=== PATIENT | male | born 1950 | race Caucasian/White ===

== ENCOUNTER 2016-06-13 09:03 | Day surgery (SDC) | payer MEDICARE, OTHER ==
[2016-06-10 10:04] VITALS: BMI 28.7
[2016-06-13 09:31] VITALS: TEMP 97
[2016-06-13] MEDS ORDERED: LIDOCAINE 1% 20 ML VIAL (10MG/ML) FOR IV START INTRADERMA ONE (09:40)
[2016-06-13] MEDS: LACTATED RINGERS 1,000 ML IV SCH ×2 (09:41→10:30)
[2016-06-13 09:43] LABS: Glucose,Whole Blood 189 mg/dL (75-99)
[2016-06-13] MEDS ORDERED: LIDOCAINE 1% INJ 10MG/ML (20 ML MDV) ONE (10:30)
[2016-06-13] MEDS ORDERED: PROPOFOL 10 MG/ML 20 ML VIAL IV ONE (10:30)
--- NOTE | 2016-06-13 10:51 | P.PCN ---
Date of Procedure: 06/13/16 Procedure(s) Performed: BRIEF HISTORY: Patient is a 65-year-old pleasant white male, scheduled for an elective colonoscopy as a part of evaluation of intermittent rectal bleeding for the last few days duration. Has history of prostate cancer status post duration therapy a year ago. Procedure performed : Colonoscopy his argon plasma coagulation . PREOPERATIVE DIAGNOSIS: Rectal bleeding. IV sedation per Anesthesia. PROCEDURE: After informed consent was obtained, the patient, was brought into the endoscopy unit. IV sedation was administered by Anesthesia under continuous monitoring. Digital rectal examination was normal. Initially the Olympus CF- 160 flexible video colonoscope was then inserted in the rectum, gradually advanced into the cecum without any difficulty. Careful examination was performed as the scope was gradually being withdrawn. Ileocecal valve and the appendiceal orifice were visualized and appeared normal. Prep was excellent. Mucosa of the cecum, ascending colon, transverse colon, descending colon, sigmoid colon appeared normal. Scattered sigmoid diverticulosis seen. In the distal rectum there were multiple telangiectasia identified consistent with radiation proctitis some oozing noted. At this time argon plasma coagulation was performed and all the colonic basis with coagulated with good hemostasis. Retroflexion was performed in the rectum and no lesions were seen. The patient tolerated the procedure well. 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 He was advised to be on a high-fiber diet and avoid straining and constipation. He will be seen in the office in 2 months.
[2016-06-13 11:09] LABS: Glucose,Whole Blood 195 mg/dL (75-99)
[2016-06-13 11:11] VITALS: BP 141/81; PULSE 84; RESP 16
== END 2016-06-13 11:36 | disposition home or self-care (01) ==
LOC: ORWHC2ENDO 09:03
PROVIDERS: ATTEND Internal Medicine Gastroenterology
DX: K62.7 Radiation proctitis (principal); K57.30 Diverticulosis of large intestine without perforation or abscess without bleeding; Z87.891 Personal history of nicotine dependence; E11.9 Type 2 diabetes mellitus without complications; Z79.84 Long term (current) use of oral hypoglycemic drugs; N40.0 Benign prostatic hyperplasia without lower urinary tract symptoms; F39 Unspecified mood [affective] disorder; M10.9 Gout, unspecified; Z79.899 Other long term (current) drug therapy; Z88.0 Allergy status to penicillin; Z88.8 Allergy status to other drugs, medicaments and biological substances
CPT/HCPCS: 45382; J2001; J2704

== ENCOUNTER 2022-07-05 08:18 | Day surgery (SDC) | payer MEDICARE, OTHER ==
[2022-07-02 16:20] VITALS: BMI 23.0
[~2022-07-05 08:18] MED LIST: LACTATED RINGERS 1,000 ML IV SCH; LIDOCAINE 1% (10MG/ML) FOR IV START INTRADERMA PRN
[2022-07-05] MEDS ORDERED: LACTATED RINGERS 1,000 ML IV ONE ×2 (08:39)
[2022-07-05 08:46] VITALS: TEMP 97.8
[2022-07-05] MEDS ORDERED: PROPOFOL 10 MG/ML 20 ML VIAL IV ONE (09:32)
[2022-07-05] MEDS ORDERED: LIDOCAINE 2% INJ 20 MG/ML (2 ML VIAL) ONE (09:32)
--- NOTE | 2022-07-05 09:52 | P.PCN ---
Date of Procedure: 07/05/22 Procedure(s) Performed: BRIEF HISTORY: Patient is a 71-year-old, pleasant, white male scheduled for an upper endoscopy as a part of follow-up of esophageal varices. Last EGD was in March of this year and underwent variceal ligation. He did have an acute esophageal variceal bleeding and January 2022.. PROCEDURE PERFORMED: Esophagogastroduodenoscopy with variceal ligation. PREOPERATIVE DIAGNOSIS: Follow-up of esophageal varices. IV sedation per anesthesia. PROCEDURE: After informed consent was obtained, the patient was brought into the endoscopy unit. IV sedation was administered by Anesthesia under continuous monitoring. Initially the Olympus GIF-140 video endoscope was inserted into the mouth. Esophagus intubated without any difficulty. It was gradually advanced into the stomach and duodenum and carefully examined. The bulb and the second part of the duodenum appeared normal. The scope at this time was withdrawn to the stomach, adequately insufflated with air, and upon careful examination, mucosa of the antrum, body, cardia and the fundus had changes consistent with mild to moderate portal hypertensive gastropathy.. The scope was then withdrawn into the esophagus. The GE junction was located at 43 cm from the incisors. The esophagus appeared normal. There where a large mid esophageal varices seen and small distal esophageal varices. At this time the scope was removed and esophageal variceal ligation equipment was introduced into the scope and esophagus was intubated without any difficulty and was gradually advanced into the distal esophagus. Using suction total of 5 bands were deployed in the distal and midesophagus. The proximal cervical esophagus appeared normal. Patient tolerated the procedure well. IMPRESSION: 1. Large mid and distal esophageal varices status post variceal ligation as described above. 2. Mild to moderate portal hypertensive gastropathy. RECOMMENDATIONS: The findings of this examination were discussed with the patient as well as his family. He was advised to continue with his current medications. Will plan a repeat upper endoscopy with variceal ligation in 6 months.
[2022-07-05 10:11] VITALS: BP 100/56; PULSE 59; RESP 18
== END 2022-07-05 10:27 | disposition home or self-care (01) ==
LOC: ORWHC2ENDO 08:18
PROVIDERS: ATTEND Internal Medicine Gastroenterology
DX: I85.00 Esophageal varices without bleeding (principal); K31.89 Other diseases of stomach and duodenum; K76.6 Portal hypertension; I10 Essential (primary) hypertension; E78.5 Hyperlipidemia, unspecified; E11.9 Type 2 diabetes mellitus without complications; K74.60 Unspecified cirrhosis of liver; Z88.5 Allergy status to narcotic agent; Z88.0 Allergy status to penicillin; Z79.899 Other long term (current) drug therapy
CPT/HCPCS: 43244; J2704; J2001

== ENCOUNTER 2023-02-21 09:31 | Day surgery (SDC) | payer MEDICARE, OTHER ==
[~2023-02-21 09:31] MED LIST changes: -LIDOCAINE 1% (10MG/ML) FOR IV START INTRADERMA PRN
[2023-02-21 10:21] LABS: Glucose,Whole Blood 156 mg/dL (70-110)
[2023-02-21] MEDS ORDERED: LIDOCAINE 1% INJ 10MG/ML (20 ML MDV) ONE (10:31)
[2023-02-21] MEDS ORDERED: ETOMIDATE 2 MG/ML 10 ML VIAL ONE (10:31)
[2023-02-21 10:44] VITALS: RESP 16; TEMP 96.9
--- NOTE | 2023-02-21 10:47 | P.PCN ---
Date of Procedure: 02/21/23 Procedure(s) Performed: BRIEF HISTORY: Patient is a 72-year-old, pleasant, white male scheduled for an upper endoscopy as a part of evaluation of liver cirrhosis and follow-up esophageal varices. History of esophageal variceal bleed in January 2022. Last EGD was done in June 2022 and was noted to have large esophageal varices for which she underwent variceal ligation.. PROCEDURE PERFORMED: Esophagogastroduodenoscopy. PREOPERATIVE DIAGNOSIS: Follow-up esophageal varices. IV sedation per anesthesia. PROCEDURE: After informed consent was obtained, the patient was brought into the endoscopy unit. IV sedation was administered by Anesthesia under continuous monitoring. Initially the Olympus GIF-140 video endoscope was inserted into the mouth. Esophagus intubated without any difficulty. It was gradually advanced into the stomach and duodenum and carefully examined. The bulb and the second part of the duodenum appeared normal. The scope at this time was withdrawn to the stomach, adequately insufflated with air, and upon careful examination, mucosa of the antrum, body had changes consistent with mild portal hypertensive gastropathy., cardia and the fundus appeared normal. No gastric varices seen. The scope was then withdrawn into the esophagus. Small hiatal hernia noted. The GE junction was located at 39 cm from the incisors. The esophagus appeared normal. There were very small mid esophageal varices identified. No variceal ligation was performed. There were no erosions or ulcerations seen and the patient tolerated the procedure well. IMPRESSION: 1. Very small with esophageal varices. 2. Mild portal hypertensive gastropathy 3 No evidence of gastric varices.. 4. Small hiatal hernia RECOMMENDATIONS: The findings of this examination were discussed with the patientas well as his family. He was advised to have a repeat upper endoscopy in 6 months. In the meantime he will continue metoprolol 10 mg 3 times daily. Follow-up in office in 2 months.
[2023-02-21 11:32] LABS: ALT 13 U/L (4-49); AST 25 U/L (17-59); African American GFR (CKD) 39 (>60 ml/min/1.73 sqM); Albumin 2.7 g/dL (3.5-5.0); Alkaline Phosphatase 315 U/L (38-126); Anion Gap 11 mmol/L; Blood Urea Nitrogen 34 mg/dL (9-20); Calcium 8.3 mg/dL (8.4-10.2); Carbon Dioxide 24 mmol/L (22-30); Chloride 102 mmol/L (98-107); Glucose 158 mg/dL (74-99); Non-African American GFR(CKD) 34 (>60 ml/min/1.73 sqM); Potassium 4.1 mmol/L (3.5-5.1); Sodium 137 mmol/L (137-145); Total Bilirubin 1.1 mg/dL (0.2-1.3); Total Protein 6.1 g/dL (6.3-8.2)
[2023-02-21 11:34] VITALS: BP 136/68; PULSE 80
== END 2023-02-21 11:45 | disposition home or self-care (01) ==
LOC: ORWHC2ENDO 09:31
PROVIDERS: ATTEND Internal Medicine Gastroenterology
DX: K31.89 Other diseases of stomach and duodenum (principal); K44.9 Diaphragmatic hernia without obstruction or gangrene; K76.6 Portal hypertension; I10 Essential (primary) hypertension; I85.01 Esophageal varices with bleeding; E11.9 Type 2 diabetes mellitus without complications; K21.9 Gastro-esophageal reflux disease without esophagitis; Z96.642 Presence of left artificial hip joint; Z79.899 Other long term (current) drug therapy; Z88.2 Allergy status to sulfonamides; Z88.3 Allergy status to other anti-infective agents; Z98.890 Other specified postprocedural states
CPT/HCPCS: 80053; 43235; J2001

== ENCOUNTER 2023-02-27 12:16 | Day surgery (SDC) | payer MEDICARE, OTHER ==
[2023-02-27 13:32] LABS: Mean Platelet Volume 8.1; Platelet Count 120 k/uL (150-450)
[2023-02-27 13:39] LABS: INR 1.1 (<1.2); Prothrombin Time 12.1 sec (10.0-12.5)
[2023-02-27 13:43] LABS: African American GFR (CKD) 44 (>60 ml/min/1.73 sqM); Glucose 243 mg/dL (74-99); Non-African American GFR(CKD) 38 (>60 ml/min/1.73 sqM)
[2023-02-27 13:49] VITALS: RESP 16
[2023-02-27] MEDS: ALBUMIN HUMAN 25% 50 ML in EMPTY BAG 1 BAG IVPB SCH ×4 (13:52→14:45)
--- NOTE | 2023-02-27 16:05 | US ---
EXAMINATION TYPE: US paracentesis abd w/image DATE OF EXAM: 02/27/2023 2:38 PM CLINICAL INDICATION:Male, 72 years old with history of R18.8; COMPARISON: 02/26/2010 ATTENDING: Dr. Corky Alvarado PROCEDURE: Informed consent was obtained. The risks of the procedure were extensively explained incl uding risk of damage to surrounding bowel with perforation and need for additional procedures. Proced ure was performed in the ultrasound procedure suite. Ultrasound imaging of the abdomen demonstrate as citic fluid. An appropriate access site was localized to the right lower abdomen. Timeout was taken p er protocol. The skin was prepped and draped in the usual sterile fashion and then locally anesthetiz ed with 1% lidocaine. The peritoneal cavity was then accessed via a 5-Malay one-step needle/cathete r. Approximately 41170 cc of clear straw-colored fluid was obtained. Postprocedural imaging of the abdomen demonstrate a minimal amount of abdominal fluid. Patient tolerated procedure well without immediate complication. Hemostasis at the procedural site w as obtained with a sterile bandage placed. The patient was monitored in the holding area following th e procedure and was subsequently discharged in stable condition. IMPRESSION: Ultrasound guided paracentesis, with approximately 34650 cc of clear straw-colored fluid drained. No immediate complications were evident.
[2023-02-27 16:07] VITALS: BP 109/63; PULSE 75
== END 2023-02-27 15:25 | disposition home or self-care (01) ==
LOC: RADPROMAIN 12:16
PROVIDERS: ATTEND Internal Medicine Gastroenterology
DX: R18.8 Other ascites (principal)
CPT/HCPCS: 82565; 82947; 85049; 85610; 36415; 49083; P9047

== ENCOUNTER 2023-04-01 19:07 | Inpatient (IN) | payer MEDICARE, OTHER ==
--- NOTE | 2023-04-01 19:26 | ED ---
General Adult HPI - General Chief complaint: Weakness Stated complaint: AMS Time Seen by Provider: 04/01/23 19:08 Source: patient, EMS, RN notes reviewed Mode of arrival: EMS Limitations: no limitations - History of Present Illness Initial comments: Patient is a pleasant 72-year-old male presenting to the emergency department with concerns with general weakness. Patient is somewhat a poor historian. Patient states he just does not feel well. Patient does have history of cirrhosis. Patient normally has paracentesis done around every 3 weeks. Pat ient does have some mild leg swelling. Patient mostly feels fatigued. There was some question of some confusion however patient does not feel confused. - Related Data Home Medications Medication Instructions Recorded Confirmed Mv-Min/Folic/K1/Lycopen/Lutein 1 each PO 1200 06/10/16 03/26/23 [Centrum Silver Men Tablet] Propranolol [Inderal] 10 mg PO TID 06/10/16 03/26/23 Midodrine HCl 5 mg PO 0800,1200 04/08/22 03/26/23 Pantoprazole [Protonix] 40 mg PO DAILY 04/08/22 03/26/23 Spironolactone 25 mg PO 0900 04/08/22 03/26/23 Tamsulosin [Flomax] 0.4 mg PO DAILY 04/08/22 03/26/23 Ferrous Sulfate [Iron] 325 mg PO BID 07/02/22 03/26/23 Furosemide [Lasix] 40 mg PO QAM 07/02/22 03/26/23 Slow-Mag (Unknown Dose) 1 tab PO 1200 07/02/22 03/26/23 traMADol HCL 50 mg PO HS PRN 07/02/22 03/26/23 Insulin Detemir [Levemir Flexpen] 10 units SQ DIRECTED 02/14/23 03/26/23 Allergies Allergy/AdvReac Type Severity Reaction Status Date / Time azithromycin [From Zithromax] Allergy Diarrhea Verified 04/01/23 19:22 enzalutamide [From Xtandi] Allergy Rash/Hives Verified 04/01/23 19:22 niacin Allergy Itching, Verified 04/01/23 19:22 red skin Penicillins Allergy Itching Verified 04/01/23 19:22 Sulfa (Sulfonamide Allergy Unknown Verified 04/01/23 19:22 Antibiotics) Review of Systems ROS Statement: Those systems with pertinent positive or pertinent negative responses have been documented in the HPI. ROS Other: All systems not noted in ROS Statement are negative. Constitutional: Denies: fever Eyes: Denies: eye pain ENT: Denies: as per HPI Respiratory: Denies: cough, dyspnea Cardiovascular: Denies: chest pain Endocrine: Reports: as per HPI, fatigue Gastrointestinal: Denies: abdominal pain Musculoskeletal: Denies: back pain Past Medical History Past Medical History: Cancer, Diabetes Mellitus, Liver Disease, Osteoarthritis (OA), Prostate Disorder, Skin Disorder Additional Past Medical History / Comment(s): Hx blood in stool, cirrhosis, hx prostate cancer 2016, hx decubitis ulcer left buttock, now healed. paracentisis every 3 weeks approx, esophageal varacies History of Any Multi-Drug Resistant Organisms: None Reported Past Surgical History: Joint Replacement Additional Past Surgical History / Comment(s): Left hip replacement, left carotid endarterectomy, EGD, colonoscopy. esophageal varacies banding Past Anesthesia/Blood Transfusion Reactions: Family History of Problems w/ Anesthesia Additional Past Anesthesia/Blood Transfusion Reaction / Comment(s): Mother - "dementia from anesthesia" Past Psychological History: No Psychological Hx Reported Smoking Status: Former smoker Past Alcohol Use History: None Reported Past Drug Use History: None Reported - Past Family History Mother Family Medical History: No Reported History General Exam Limitations: no limitations General appearance: alert, in no apparent distress Head exam: Present: normocephalic Eye exam: Present: normal appearance, PERRL, EOMI ENT exam: Present: mucous membranes dry Neck exam: Present: normal inspection Respiratory exam: Present: normal lung sounds bilaterally Cardiovascular Exam: Present: regular rate, normal rhythm GI/Abdominal exam: Present: distended, normal bowel sounds. Absent: tenderness, pulsatile mass Extremities exam: Present: pedal edema. Absent: calf tenderness Neurological exam: Present: alert Psychiatric exam: Present: normal affect, normal mood Skin exam: Present: normal color Course Vital Signs 04/01/23 19:09 Temperature 97.3 F L Pulse Rate 64 Respiratory 18 Rate Blood Pressure 97/57 O2 Sat by Pulse 99 Oximetry EKG Findings - EKG Results: EKG: interpreted by ERMD, sinus rhythm, normal axis, normal QRS, normal ST/T Medical Decision Making - Medical Decision Making Was pt. sent in by a medical professional or institution (, PA, SHIPPING SERVICES SALES REPRESENTATIVE, urgent care, hospital, or long term...) When possible be specific @ -No Did you speak to anyone other than the patient for history (EMS, parent, family, police, friend...)? What history was obtained from this source @ -Family arrives and helps provide further history including history of confusion and patient no longer being able to read Did you review nursing and triage notes (agree or disagree)? Why? @ -I reviewed and agree with nursing and triage notes Were old charts reviewed (outside hosp., previous admission, EMS record, old EKG, old radiological studies, urgent care reports/EKG's, long term records)? Report findings @ -Previous labs reviewed Differential Diagnosis (chest pain, altered mental status, abdominal pain women, abdominal pain men, vaginal bleeding, weakness, fever, dyspnea, syncope, headache, dizziness, GI bleed, back pain, seizure, CVA, palpatations, mental health, musculoskeletal)? @ -Differential Altered Mental Status: Hypoglycemia, DKA, hypercapnia, ETOH, overdose, CO poisoning, trauma, myxedema coma, HTN encephalopathy, infection, encephalitis, psychosis, intercranial hemorrhage, hepatic encephalopathy, meningitis, CVA, this is not meant to be an all-inclusive list EKG interpreted by me (3pts min.). @ -As above X-rays interpreted by me (1pt min.). @ -Chest x-ray shows old rib fractures CT interpreted by me (1pt min.). @ -CT brain reveals no acute abnormality. U/S interpreted by me (1pt. min.). @ -None done What testing was considered but not performed or refused? (CT, X-rays, U/S, labs)? Why? @ -None What meds were considered but not given or refused? Why? @ -None Did you discuss the management of the patient with other professionals (professionals i.e. , PA, SHIPPING SERVICES SALES REPRESENTATIVE, lab, RT, psych nurse, social insurance administrator, plisse machine operator, teacher, evp and chief operating officer, field nurse case manager)? Give summary @ -Case was discussed with practitioner Sada, covering with Dr. Meyer, who will admit covering Dr. Mays. Was smoking cessation discussed for >3mins.? @ -No Was critical care preformed (if so, how long)? @ -No Were there social determinants of health that impacted care today? How? (Homelessness, low income, unemployed, alcoholism, drug addiction, transportation, low edu. Level, literacy, decrease access to med. care, [facility], rehab)? @ -No Was there de-escalation of care discussed even if they declined (Discuss DNR or withdrawal of care, Hospice)? DNR status @ -No What co-morbidities impacted this encounter? (DM, HTN, Smoking, COPD, CAD, C ancer, CVA, ARF, Chemo, Hep., AIDS, mental health diagnosis, sleep apnea, morbid obesity)? @ -Underlying cirrhosis e Was patient admitted / discharged? Hospital course, mention meds given and route, prescriptions, significant lab abnormalities, going to OR and other pertinent info. @ -Patient reevaluated. Patient resting comfortably in bed. Patient and family updated on results and plan. Patient will be admitted with lactulose treatment. Neurology will be consulted secondary to patient having known prostate cancer and being on treatment for it at this time. Undiagnosed new problem with uncertain prognosis? @ -No Drug Therapy requiring intensive monitoring for toxicity (Heparin, Nitro, Insulin, Cardizem)? @ -No Were any procedures done? @ -No Diagnosis/symptom? @ -Hepatic encephalopathy, dehydration Acute, or Chronic, or Acute on Chronic? @ -Acute, acute Uncomplicated (without systemic symptoms) or Complicated (systemic symptoms)? @ -Default Side effects of treatment? @ -No Exacerbation, Progression, or Severe Exacerbation? @ -No Poses a threat to life or bodily function? How? (Chest pain, [place], [place], pneumonia, PE, COPD, DKA, ARF, appy, cholecystitis, CVA, Diverticulitis, Homicidal, Suicidal, threat to staff... and all critical care pts) @ -No - Lab Data Result diagrams: 04/01/23 19:27 04/01/23 19:27 Lab Results 04/01/23 04/01/23 04/01/23 Range/Units 19:26 19:27 19:27 WBC 8.6 (3.8-10.6) k/uL RBC 2.50 L (4.30-5.90) m/uL Hgb 8.2 L (13.0-17.5) gm/dL Hct 25.3 L (39.0-53.0) % MCV 101.4 H (80.0-100.0) fL MCH 32.8 (25.0-35.0) pg MCHC 32.4 (31.0-37.0) g/dL RDW 19.5 H (11.5-15.5) % Plt Count 87 L (150-450) k/uL MPV 9.9 Neutrophils % 89 % Lymphocytes % 5 % Monocytes % 4 % Eosinophils % 1 % Basophils % 0 % Neutrophils # 7.6 (1.3-7.7) k/uL Lymphocytes # 0.4 L (1.0-4.8) k/uL Monocytes # 0.4 (0-1.0) k/uL Eosinophils # 0.1 (0-0.7) k/uL Basophils # 0.0 (0-0.2) k/uL Manual Slide Review Performed Polychromasia Present Hypochromasia Moderate Hypochromasia (manual) Present Anisocytosis Slight Anisocytosis (manual) Present Macrocytosis Moderate PT 15.7 H (10.0-12.5) sec INR 1.5 H (<1.2) APTT 28.9 (22.0-30.0) sec Sodium (137-145) mmol/L Potassium (3.5-5.1) mmol/L Chloride (98-107) mmol/L Carbon Dioxide (22-30) mmol/L Anion Gap mmol/L BUN (9-20) mg/dL Creatinine (0.66-1.25) mg/dL Est GFR (CKD-EPI)AfAm (>60 ml/min/1.73 sqM) Est GFR (CKD-EPI)NonAf (>60 ml/min/1.73 sqM) Glucose (74-99) mg/dL POC Glucose (mg/dL) 173 H (70-110) mg/dL POC Glu Java Web Application Developer ID Gregg Olsen Plasma Lactic Acid Bryan (0.7-2.0) mmol/L Calcium (8.4-10.2) mg/dL Magnesium (1.6-2.3) mg/dL Total Bilirubin (0.2-1.3) mg/dL AST (17-59) U/L ALT (4-49) U/L Alkaline Phosphatase (38-126) U/L Ammonia (<30) umol/L Troponin I (0.000-0.034) ng/mL Total Protein (6.3-8.2) g/dL Albumin (3.5-5.0) g/dL Urine Color Urine Appearance (Clear) Urine pH (5.0-8.0) Ur Specific [place] (1.001-1.035) Urine Protein (Negative) Urine Glucose (UA) (Negative) Urine Ketones (Negative) Urine Blood (Negative) Urine Nitrite (Negative) Urine Bilirubin (Negative) Urine Urobilinogen (<2.0) mg/dL Ur Leukocyte Esterase (Negative) 04/01/23 04/01/23 04/01/23 Range/Units 19:27 19:27 19:27 WBC (3.8-10.6) k/uL RBC (4.30-5.90) m/uL Hgb (13.0-17.5) gm/dL Hct (39.0-53.0) % MCV (80.0-100.0) fL MCH (25.0-35.0) pg MCHC (31.0-37.0) g/dL RDW (11.5-15.5) % Plt Count (150-450) k/uL MPV Neutrophils % % Lymphocytes % % Monocytes % % Eosinophils % % Basophils % % Neutrophils # (1.3-7.7) k/uL Lymphocytes # (1.0-4.8) k/uL Monocytes # (0-1.0) k/uL Eosinophils # (0-0.7) k/uL Basophils # (0-0.2) k/uL Manual Slide Review Polychromasia Hypochromasia Hypochromasia (manual) Anisocytosis Anisocytosis (manual) Macrocytosis PT (10.0-12.5) sec INR (<1.2) APTT (22.0-30.0) sec Sodium 138 (137-145) mmol/L Potassium 5.5 H (3.5-5.1) mmol/L Chloride 112 H (98-107) mmol/L Carbon Dioxide 12 L (22-30) mmol/L Anion Gap 14 mmol/L BUN 79 H (9-20) mg/dL Creatinine 2.34 H (0.66-1.25) mg/dL Est GFR (CKD-EPI)AfAm 31 (>60 ml/min/1.73 sqM) Est GFR (CKD-EPI)NonAf 27 (>60 ml/min/1.73 sqM) Glucose 153 H (74-99) mg/dL POC Glucose (mg/dL) (70-110) mg/dL POC Glu Java Web Application Developer ID Plasma Lactic Acid Bryan 3.8 H* (0.7-2.0) mmol/L Calcium 6.8 L (8.4-10.2) mg/dL Magnesium 2.2 (1.6-2.3) mg/dL Total Bilirubin 2.2 H (0.2-1.3) mg/dL AST 38 (17-59) U/L ALT 23 (4-49) U/L Alkaline Phosphatase 554 H (38-126) U/L Ammonia 167 H (<30) umol/L Troponin I (0.000-0.034) ng/mL Total Protein 6.3 (6.3-8.2) g/dL Albumin 2.8 L (3.5-5.0) g/dL Urine Color Colorless Urine Appearance Clear (Clear) Urine pH 5.0 (5.0-8.0) Ur Specific [place] 1.009 (1.001-1.035) Urine Protein Negative (Negative) Urine Glucose (UA) Negative (Negative) Urine Ketones Negative (Negative) Urine Blood Negative (Negative) Urine Nitrite Negative (Negative) Urine Bilirubin Negative (Negative) Urine Urobilinogen <2.0 (<2.0) mg/dL Ur Leukocyte Esterase Negative (Negative) 04/01/23 Range/Units 19:27 WBC (3.8-10.6) k/uL RBC (4.30-5.90) m/uL Hgb (13.0-17.5) gm/dL Hct (39.0-53.0) % MCV (80.0-100.0) fL MCH (25.0-35.0) pg MCHC (31.0-37.0) g/dL RDW (11.5-15.5) % Plt Count (150-450) k/uL MPV Neutrophils % % Lymphocytes % % Monocytes % % Eosinophils % % Basophils % % Neutrophils # (1.3-7.7) k/uL Lymphocytes # (1.0-4.8) k/uL Monocytes # (0-1.0) k/uL Eosinophils # (0-0.7) k/uL Basophils # (0-0.2) k/uL Manual Slide Review Polychromasia Hypochromasia Hypochromasia (manual) Anisocytosis Anisocytosis (manual) Macrocytosis PT (10.0-12.5) sec INR (<1.2) APTT (22.0-30.0) sec Sodium (137-145) mmol/L Potassium (3.5-5.1) mmol/L Chloride (98-107) mmol/L Carbon Dioxide (22-30) mmol/L Anion Gap mmol/L BUN (9-20) mg/dL Creatinine (0.66-1.25) mg/dL Est GFR (CKD-EPI)AfAm (>60 ml/min/1.73 sqM) Est GFR (CKD-EPI)NonAf (>60 ml/min/1.73 sqM) Glucose (74-99) mg/dL POC Glucose (mg/dL) (70-110) mg/dL POC Glu Java Web Application Developer ID Plasma Lactic Acid Bryan (0.7-2.0) mmol/L Calcium (8.4-10.2) mg/dL Magnesium (1.6-2.3) mg/dL Total Bilirubin (0.2-1.3) mg/dL AST (17-59) U/L ALT (4-49) U/L Alkaline Phosphatase (38-126) U/L Ammonia (<30) umol/L Troponin I <0.012 (0.000-0.034) ng/mL Total Protein (6.3-8.2) g/dL Albumin (3.5-5.0) g/dL Urine Color Urine Appearance (Clear) Urine pH (5.0-8.0) Ur Specific [place] (1.001-1.035) Urine Protein (Negative) Urine Glucose (UA) (Negative) Urine Ketones (Negative) Urine Blood (Negative) Urine Nitrite (Negative) Urine Bilirubin (Negative) Urine Urobilinogen (<2.0) mg/dL Ur Leukocyte Esterase (Negative) Disposition Clinical Impression: Dehydration, Hepatic encephalopathy Disposition: ADMITTED IP TO THIS [facility] Is patient prescribed a controlled substance at d/c from ED?: No Referrals: None,Stated [Primary Care Provider] - 1-2 days Time of Disposition: 20:39
[2023-04-01 19:28] LABS: Glucose,Whole Blood 173 mg/dL (70-110)
[2023-04-01 19:55] LABS: Anisocytosis Slight; Appearance,Urine Clear (Clear); Basophils % (A) 0 %; Bilirubin,Urine Negative (Negative); Blood,Urine Negative (Negative); Color,Urine Colorless; Eosinophils # (A) 0.1 k/uL (0-0.7); Eosinophils % (A) 1 %; Glucose,Urine (UA) Negative (Negative); HCT 25.3 % (39.0-53.0); HGB 8.2 gm/dL (13.0-17.5); Hypochromasia Moderate; Ketones,Urine Negative (Negative); Leukocyte Esterase,Urine Negative (Negative); Lymphocytes # (A) 0.4 k/uL (1.0-4.8); Lymphocytes % (A) 5 %; MCH 32.8 pg (25.0-35.0); MCHC 32.4 g/dL (31.0-37.0); MCV 101.4 fL (80.0-100.0); Macrocytosis Moderate; Mean Platelet Volume 9.9; Monocytes # (A) 0.4 k/uL (0-1.0); Monocytes % (A) 4 %; Neutrophils # (A) 7.6 k/uL (1.3-7.7); Nitrite,Urine Negative (Negative); Protein,Urine Negative (Negative); RDW 19.5 % (11.5-15.5); Specific Gravity,Urine 1.009 (1.001-1.035); Urobilinogen,Urine <2.0 mg/dL (<2.0); WBC 8.6 k/uL (3.8-10.6)
[2023-04-01 19:57] LABS: INR 1.5 (<1.2); Partial Thromboplastin Time 28.9 sec (22.0-30.0); Prothrombin Time 15.7 sec (10.0-12.5)
[2023-04-01 20:05] LABS: ALT 23 U/L (4-49); AST 38 U/L (17-59); African American GFR (CKD) 31 (>60 ml/min/1.73 sqM); Albumin 2.8 g/dL (3.5-5.0); Alkaline Phosphatase 554 U/L (38-126); Anion Gap 14 mmol/L; Blood Urea Nitrogen 79 mg/dL (9-20); Calcium 6.8 mg/dL (8.4-10.2); Carbon Dioxide 12 mmol/L (22-30); Chloride 112 mmol/L (98-107); Glucose 153 mg/dL (74-99); Magnesium 2.2 mg/dL (1.6-2.3); Non-African American GFR(CKD) 27 (>60 ml/min/1.73 sqM); Potassium 5.5 mmol/L (3.5-5.1); Sodium 138 mmol/L (137-145); Total Bilirubin 2.2 mg/dL (0.2-1.3); Total Protein 6.3 g/dL (6.3-8.2)
[2023-04-01 20:07] LABS: Lactic Acid, Venous 3.8 mmol/L (0.7-2.0)
[2023-04-01 20:10] LABS: Neutrophils % (A) 89 %
--- NOTE | 2023-04-01 20:13 | CT ---
EXAMINATION TYPE: CT brain wo con CT DLP: 1242.4 mGycm, Automated exposure control for dose reduction was used. DATE OF EXAM: 04/01/2023 7:55 PM COMPARISON: None. CLINICAL INDICATION:Male, 72 years old with history of , Weakness. TECHNIQUE: Brain: Axial CT images of the brain were obtained with coronal and sagittal reformats created and rev iewed. Contrast used: None. Oral contrast used: None. FINDINGS: Brain: Extra-axial spaces: No abnormal extra-axial fluid collections. Ventricular system: Within normal limits Cerebral parenchyma: No acute intraparenchymal hemorrhage or mass effect. The donaldson-white junction is well differentiated. Scattered hypoattenuating areas are seen within the white matter. Cerebellum: Unremarkable. Mass effect: No evidence of midline shift. Intracranial vasculature: Atherosclerotic calcifications of the intracranial vessels. Soft tissues: Normal. Calvarium/osseous structures: No depressed skull fracture. Paranasal sinuses and mastoid air cells: Mild scattered paranasal sinus disease. Visualized orbits: Orbital contents are intact. IMPRESSION: No acute intracranial process.
[2023-04-01 20:26] LABS: Platelet Count 87 k/uL (150-450)
[2023-04-01 20:27] LABS: Anisocytosis (M) Present; Hypochromasia (M) Present; Polychromasia Present
[2023-04-01] MEDS ORDERED: NALOXONE 0.4 MG/ML 1 ML VIAL IV PRN (20:32)
--- NOTE | 2023-04-01 20:47 | XR ---
EXAMINATION TYPE: XR chest 2V DATE OF EXAM: 04/01/2023 8:37 PM CLINICAL INDICATION:Male, 72 years old with history of Weakness; [facility] COMPARISON: Chest radiographs from TECHNIQUE: XR chest 2V Frontal and lateral views of the chest. FINDINGS: Lungs/Pleura: There is no evidence of pleural effusion, focal consolidation, or pneumothorax. Pulmonary vascularity: Unremarkable. Heart/mediastinum: Cardiomediastinal silhouette is unremarkable. Musculoskeletal: No acute osseous pathology. Remote healing right-sided rib fractures. IMPRESSION: 1. No acute cardiopulmonary disease/process. 2. Remote right-sided healing rib fractures.
[2023-04-01] MEDS: SODIUM CHLORIDE 0.9% 1,000 ML IV SCH (20:50)
[2023-04-01] MEDS: PANTOPRAZOLE 40 MG/10 ML VIAL IV SCH (20:55)
[2023-04-01] MEDS: LACTULOSE 20 GM/30 ML CUP PO SCH (23:49)
[2023-04-02 04:27] LABS: Anisocytosis Slight; Basophils % (A) 0 %; Eosinophils % (A) 1 %; HCT 24.9 % (39.0-53.0); HGB 7.9 gm/dL (13.0-17.5); Hypochromasia Marked; Lymphocytes # (A) 0.3 k/uL (1.0-4.8); Lymphocytes % (A) 5 %; MCH 32.8 pg (25.0-35.0); MCHC 31.6 g/dL (31.0-37.0); MCV 103.9 fL (80.0-100.0); Macrocytosis Marked; Mean Platelet Volume 9.6; Monocytes # (A) 0.3 k/uL (0-1.0); Monocytes % (A) 5 %; Neutrophils # (A) 5.9 k/uL (1.3-7.7); Neutrophils % (A) 89 %; RDW 19.3 % (11.5-15.5); WBC 6.7 k/uL (3.8-10.6)
[2023-04-02 04:28] LABS: Platelet Count 71 k/uL (150-450)
[2023-04-02 04:44] LABS: ALT 21 U/L (4-49); AST 42 U/L (17-59); African American GFR (CKD) 32 (>60 ml/min/1.73 sqM); Albumin 2.6 g/dL (3.5-5.0); Alkaline Phosphatase 458 U/L (38-126); Anion Gap 10 mmol/L; Blood Urea Nitrogen 80 mg/dL (9-20); Calcium 6.5 mg/dL (8.4-10.2); Carbon Dioxide 15 mmol/L (22-30); Chloride 114 mmol/L (98-107); Glucose 141 mg/dL (74-99); Magnesium 2.2 mg/dL (1.6-2.3); Non-African American GFR(CKD) 28 (>60 ml/min/1.73 sqM); Potassium 5.4 mmol/L (3.5-5.1); Sodium 139 mmol/L (137-145); Total Bilirubin 2.1 mg/dL (0.2-1.3); Total Protein 5.9 g/dL (6.3-8.2)
--- NOTE | 2023-04-02 08:51 | P.GSCN ---
History of Present Illness Consult date: 04/02/23 Reason for Consult: Prostate cancer Requesting physician: Yarely Meyer History of present illness: The patient is a 72-year-old white male well-known to me. He was diagnosed with prostate cancer in August 2015 and treated with radiation therapy. He also received androgen deprivation therapy for 6 months. In 2021, his PSA level had risen to 5.360, and bone scan suggested the presence of metastases. He was treated with androgen deprivation therapy and Xtandi. However, the Xtandi caused a rash and was discontinued. He was evaluated for hematuria in early 2022, showing penile urethral strictures but no other abnormalities. His PSA level in March 2022 was 0.10. However, the PSA level sedrick to 12.70 in October 2022 and 90.50 in January 2023. He received radiation therapy to the spine in the fall 2022, and was recently started on Erleada and Xgeva. He is now admitted admitted with generalized weakness. Review of Systems - Constitutional Reports weakness, Reports weight loss Past Medical History Past Medical History: Cancer, Diabetes Mellitus, Liver Disease, Osteoarthritis (OA), Prostate Disorder, Skin Disorder Additional Past Medical History / Comment(s): Hx blood in stool, cirrhosis, hx prostate cancer 2015, hx decubitis ulcer left buttock, now healed. paracentisis every 3 weeks approx, esophageal varacies History of Any Multi-Drug Resistant Organisms: None Reported Past Surgical History: Joint Replacement Additional Past Surgical History / Comment(s): Left hip replacement, left carotid endarterectomy, EGD, colonoscopy. esophageal varacies banding Past Anesthesia/Blood Transfusion Reactions: Family History of Problems w/ Anesthesia Additional Past Anesthesia/Blood Transfusion Reaction / Comm: Mother -"dementia from anesthesia" Past Psychological History: No Psychological Hx Reported Smoking Status: Unknown if ever smoked Past Alcohol Use History: None Reported Additional Past Alcohol Use History / Comment(s): Quit smoking 05/1999, smoked since age 15. Past Drug Use History: None Reported - Past Family History Mother Family Medical History: No Reported History Medications and Allergies Home Medications Medication Instructions Recorded Confirmed Type Mv-Min/Folic/K1/Lycopen/Lutein 1 tab PO DAILY@1200 06/10/16 04/01/23 History [Centrum Silver Men Tablet] Midodrine HCl 5 mg PO BID 04/08/22 04/01/23 History Pantoprazole [Protonix] 40 mg PO DAILY 04/08/22 04/01/23 History Spironolactone 25 mg PO DAILY 04/08/22 04/01/23 History Tamsulosin [Flomax] 0.4 mg PO PC-SUPPER 04/08/22 04/01/23 History Ferrous Sulfate [Iron] 325 mg PO DAILY 07/02/22 04/01/23 History Slow-Mag (Unknown Dose) 1 tab PO DAILY@1200 07/02/22 04/01/23 History Calcium 600mg W/Vitamin D3 1 tab PO BID 04/01/23 04/01/23 History Furosemide [Lasix] 40 mg PO DAILY 04/01/23 04/01/23 History Loperamide [Imodium] 2 mg PO BID 04/01/23 04/01/23 History Megestrol Acetate 20 mg PO BID 04/01/23 04/01/23 History Propranolol [Inderal] 10 mg PO TID 04/01/23 04/01/23 History glipiZIDE [Glucotrol] 5 mg PO BID 04/01/23 04/01/23 History metFORMIN HCL 1,000 mg PO BID 04/01/23 04/01/23 History predniSONE 100 mg PO DAILY 04/01/23 04/01/23 History Allergies Allergy/AdvReac Type Severity Reaction Status Date / Time azithromycin [From Zithromax] Allergy Diarrhea Verified 04/01/23 21:23 enzalutamide [From Xtandi] Allergy Rash/Hives Verified 04/01/23 21:23 niacin Allergy Itching, Verified 04/01/23 21:23 red skin Penicillins Allergy Itching Verified 04/01/23 21:23 Sulfa (Sulfonamide Allergy Unknown Verified 04/01/23 21:23 Antibiotics) Surgical - Exam Vital Signs Temp Pulse Resp BP Pulse Ox 97.3 F L 64 18 97/57 99 04/01/23 19:09 04/01/23 19:09 04/01/23 19:04/01/23 19:04/01/23 19:09 - General well developed, well nourished, no distress - Respiratory normal respiratory effort - Abdomen Abdomen: soft, non tender, no guarding, no rigid, no rebound, distended - Genitourinary normal penis with no external lesions, testicles non-tender - Psychiatric oriented to time, oriented to person, oriented to place, speech is normal, memory intact Results - Labs 04/02/23 03:59 04/02/23 03:59 Abnormal Lab Results - Last 24 Hours (Table) 04/01/23 04/01/23 04/01/23 Range/Units 19:26 19:27 19:27 RBC 2.50 L (4.30-5.90) m/uL Hgb 8.2 L (13.0-17.5) gm/dL Hct 25.3 L (39.0-53.0) % MCV 101.4 H (80.0-100.0) fL RDW 19.5 H (11.5-15.5) % Plt Count 87 L (150-450) k/uL Lymphocytes # 0.4 L (1.0-4.8) k/uL Macrocytosis PT 15.7 H (10.0-12.5) sec INR 1.5 H (<1.2) Potassium (3.5-5.1) mmol/L Chloride (98-107) mmol/L Carbon Dioxide (22-30) mmol/L BUN (9-20) mg/dL Creatinine (0.66-1.25) mg/dL Glucose (74-99) mg/dL POC Glucose (mg/dL) 173 H (70-110) mg/dL Plasma Lactic Acid Bryan (0.7-2.0) mmol/L Calcium (8.4-10.2) mg/dL Total Bilirubin (0.2-1.3) mg/dL Alkaline Phosphatase (38-126) U/L Ammonia (<30) umol/L Total Protein (6.3-8.2) g/dL Albumin (3.5-5.0) g/dL 04/01/23 04/01/23 04/01/23 Range/Units 19:27 19:27 22:19 RBC (4.30-5.90) m/uL Hgb (13.0-17.5) gm/dL Hct (39.0-53.0) % MCV (80.0-100.0) fL RDW (11.5-15.5) % Plt Count (150-450) k/uL Lymphocytes # (1.0-4.8) k/uL Macrocytosis PT (10.0-12.5) sec INR (<1.2) Potassium 5.5 H (3.5-5.1) mmol/L Chloride 112 H (98-107) mmol/L Carbon Dioxide 12 L (22-30) mmol/L BUN 79 H (9-20) mg/dL Creatinine 2.34 H (0.66-1.25) mg/dL Glucose 153 H (74-99) mg/dL POC Glucose (mg/dL) (70-110) mg/dL Plasma Lactic Acid Bryan 3.8 H* 3.2 H* (0.7-2.0) mmol/L Calcium 6.8 L (8.4-10.2) mg/dL Total Bilirubin 2.2 H (0.2-1.3) mg/dL Alkaline Phosphatase 554 H (38-126) U/L Ammonia 167 H (<30) umol/L Total Protein (6.3-8.2) g/dL Albumin 2.8 L (3.5-5.0) g/dL 04/02/23 04/02/23 04/02/23 Range/Units 01:00 03:59 03:59 RBC 2.40 L (4.30-5.90) m/uL Hgb 7.9 L (13.0-17.5) gm/dL Hct 24.9 L (39.0-53.0) % MCV 103.9 H (80.0-100.0) fL RDW 19.3 H (11.5-15.5) % Plt Count 71 L (150-450) k/uL Lymphocytes # 0.3 L (1.0-4.8) k/uL Macrocytosis Marked A PT (10.0-12.5) sec INR (<1.2) Potassium 5.4 H (3.5-5.1) mmol/L Chloride 114 H (98-107) mmol/L Carbon Dioxide 15 L (22-30) mmol/L BUN 80 H (9-20) mg/dL Creatinine 2.26 H (0.66-1.25) mg/dL Glucose 141 H (74-99) mg/dL POC Glucose (mg/dL) (70-110) mg/dL Plasma Lactic Acid Bryan 3.0 H* (0.7-2.0) mmol/L Calcium 6.5 L (8.4-10.2) mg/dL Total Bilirubin 2.1 H (0.2-1.3) mg/dL Alkaline Phosphatase 458 H (38-126) U/L Ammonia (<30) umol/L Total Protein 5.9 L (6.3-8.2) g/dL Albumin 2.6 L (3.5-5.0) g/dL 04/02/23 Range/Units 03:59 RBC (4.30-5.90) m/uL Hgb (13.0-17.5) gm/dL Hct (39.0-53.0) % MCV (80.0-100.0) fL RDW (11.5-15.5) % Plt Count (150-450) k/uL Lymphocytes # (1.0-4.8) k/uL Macrocytosis PT (10.0-12.5) sec INR (<1.2) Potassium (3.5-5.1) mmol/L Chloride (98-107) mmol/L Carbon Dioxide (22-30) mmol/L BUN (9-20) mg/dL Creatinine (0.66-1.25) mg/dL Glucose (74-99) mg/dL POC Glucose (mg/dL) (70-110) mg/dL Plasma Lactic Acid Bryan 2.7 H* (0.7-2.0) mmol/L Calcium (8.4-10.2) mg/dL Total Bilirubin (0.2-1.3) mg/dL Alkaline Phosphatase (38-126) U/L Ammonia (<30) umol/L Total Protein (6.3-8.2) g/dL Albumin (3.5-5.0) g/dL Diabetes panel 04/01/23 04/02/23 Range/Units 19:27 03:59 Sodium 138 139 (137-145) mmol/L Potassium 5.5 H 5.4 H (3.5-5.1) mmol/L Chloride 112 H 114 H (98-107) mmol/L Carbon Dioxide 12 L 15 L (22-30) mmol/L BUN 79 H 80 H (9-20) mg/dL Creatinine 2.34 H 2.26 H (0.66-1.25) mg/dL Glucose 153 H 141 H (74-99) mg/dL Calcium 6.8 L 6.5 L (8.4-10.2) mg/dL AST 38 42 (17-59) U/L ALT 23 21 (4-49) U/L Alkaline Phosphatase 554 H 458 H (38-126) U/L Total Protein 6.3 5.9 L (6.3-8.2) g/dL Albumin 2.8 L 2.6 L (3.5-5.0) g/dL Calcium panel 04/01/23 04/02/23 Range/Units 19:27 03:59 Calcium 6.8 L 6.5 L (8.4-10.2) mg/dL Albumin 2.8 L 2.6 L (3.5-5.0) g/dL Pituitary panel 04/01/23 04/02/23 Range/Units 19:27 03:59 Sodium 138 139 (137-145) mmol/L Potassium 5.5 H 5.4 H (3.5-5.1) mmol/L Chloride 112 H 114 H (98-107) mmol/L Carbon Dioxide 12 L 15 L (22-30) mmol/L BUN 79 H 80 H (9-20) mg/dL Creatinine 2.34 H 2.26 H (0.66-1.25) mg/dL Glucose 153 H 141 H (74-99) mg/dL Calcium 6.8 L 6.5 L (8.4-10.2) mg/dL Adrenal panel 04/01/23 04/02/23 Range/Units 19:27 03:59 Sodium 138 139 (137-145) mmol/L Potassium 5.5 H 5.4 H (3.5-5.1) mmol/L Chloride 112 H 114 H (98-107) mmol/L Carbon Dioxide 12 L 15 L (22-30) mmol/L BUN 79 H 80 H (9-20) mg/dL Creatinine 2.34 H 2.26 H (0.66-1.25) mg/dL Glucose 153 H 141 H (74-99) mg/dL Calcium 6.8 L 6.5 L (8.4-10.2) mg/dL Total Bilirubin 2.2 H 2.1 H (0.2-1.3) mg/dL AST 38 42 (17-59) U/L ALT 23 21 (4-49) U/L Alkaline Phosphatase 554 H 458 H (38-126) U/L Total Protein 6.3 5.9 L (6.3-8.2) g/dL Albumin 2.8 L 2.6 L (3.5-5.0) g/dL Assessment and Plan (1) Malignant neoplasm of prostate Current Visit: Yes Status: Acute Code(s): C61 - MALIGNANT NEOPLASM OF [place] OSTATE SNOMED Code(s): 928581019 (2) Secondary malignant neoplasm of bone Current Visit: Yes Status: Acute Code(s): C79.51 - SECONDARY MALIGNANT NEOPLASM OF BONE SNOMED Code(s): 56392189 Plan: 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 I am hopeful that he will respond to Erleada. He is due for his next Lupron injection in mid May. Arrangements will be made for him to undergo genetic testing to determine whether he may benefit from a PARP inhibitor. Unfortunately, his overall prognosis is poor.
[2023-04-02] MEDS ORDERED: HYDROmorphone 0.5 MG/0.5 ML SYRINGE IVP PRN (13:10)
[2023-04-02] MEDS ORDERED: ACETAMINOPHEN TAB 325 MG TAB PO PRN (13:10)
[2023-04-02] MEDS: methylPREDNISolone SOD SUCCI 125 MG/2 ML VIAL IV SCH (15:28)
[2023-04-02] MEDS: MIDODRINE 5 MG TAB PO SCH (15:38)
[2023-04-02] MEDS: MEGESTROL 40 MG TAB PO SCH (15:38)
[2023-04-02] MEDS ORDERED: PROPRANOLOL 10 MG TAB PO SCH (16:00)
[2023-04-02] MEDS: TAMSULOSIN 0.4 MG CAP.ER.24H PO SCH (16:36)
[2023-04-02 16:44] LABS: Lactic Acid, Venous 2.2 mmol/L (0.7-2.0)
[2023-04-02] MEDS ORDERED: IOPAMIDOL CONTRAST (ORAL USE) VIAL PO PRN (18:25)
--- NOTE | 2023-04-02 21:52 | P.CONS ---
History of Present Illness - Reason for Consult Consult date: 04/02/23 Sepsis Requesting physician: Yarely Meyer - Chief Complaint Weakness x few days - History of Present Illness Patient is a 72-year-old male with a past medical his significant for diabetes mellitus osteoarthritis history of prostate cancer diagnosed in 2016 and pancreatitis the patient has been brought into the hospital for evaluation of generalized weakness and with the patient symptom has been getting worse for the last 3 days and has been complaining of does not feel well apparently the patient did have a history of cirrhosis of the liver and gets paracentesis every 3 weeks started very clear when his last paracentesis was done patient be complaining of abdominal distention and leg swelling however he is not very clear about any abdominal pain nausea or vomiting or any diarrhea patient denies having any headache or URI symptoms denies any chest pain or shortness of breath and is currently not requiring any supplemental oxygen patient on presentation to the hospital was afebrile however patient has become hypothermic this evening with a temperature of 94.1 F patient was not tachycardic mildly hypertensive but not requiring any pressor support current hypoxic and no need for supplemental oxygen patient did have a white count of 8.6 BUN and creatinine has been elevated did have elevated lactic acid liver enzymes are normal urine has been negative, patient did have a CT of the brain negative for any bleed chest x-ray no acute cardiopulmonary disease process with concern for possible sepsis patient was started on Rocephin and infectious disease was consulted for further management of antibiotic therapy Review of Systems Positive point and negatives has been mentioned in the HPI, complete review of systems was performed and all other systems are negative Past Medical History Past Medical History: Cancer, Diabetes Mellitus, Liver Disease, Osteoarthritis (OA), Prostate Disorder, Skin Disorder Additional Past Medical History / Comment(s): Hx blood in stool, cirrhosis, hx prostate cancer 2016, hx decubitis ulcer left buttock, now healed. paracentisis every 3 weeks approx, esophageal varacies History of Any Multi-Drug Resistant Organisms: None Reported Past Surgical History: Joint Replacement Additional Past Surgical History / Comment(s): Left hip replacement, left carotid endarterectomy, EGD, colonoscopy. esophageal varacies banding Past Anesthesia/Blood Transfusion Reactions: Family History of Problems w/ Anesthesia Additional Past Anesthesia/Blood Transfusion Reaction / Comm: Mother -"dementia from anesthesia" Past Psychological History: No Psychological Hx Reported Smoking Status: Unknown if ever smoked Past Alcohol Use History: None Reported Additional Past Alcohol Use History / Comment(s): Quit smoking 05/1999, smoked since age 15. Past Drug Use History: None Reported - Past Family History Mother Family Medical History: No Reported History Medications and Allergies Home Medications Medication Instructions Recorded Confirmed Type Megestrol Acetate 20 mg PO BID 04/01/23 04/01/23 History Allergies Allergy/AdvReac Type Severity Reaction Status Date / Time azithromycin [From Zithromax] Allergy Diarrhea Verified 04/01/23 21:23 enzalutamide [From Xtandi] Allergy Rash/Hives Verified 04/01/23 21:23 niacin Allergy Itching, Verified 04/01/23 21:23 red skin Penicillins Allergy Itching Verified 04/01/23 21:23 Sulfa (Sulfonamide Allergy Unknown Verified 04/01/23 21:23 Antibiotics) Physical Exam Vitals: Vital Signs Temp Pulse Pulse Resp BP BP BP 04/02/23 11:27 69 18 88/52 04/02/23 08:00 67 16 86/45 04/02/23 04:00 97.1 F L 62 16 99/65 04/02/23 02:00 62 04/02/23 00:37 97.5 F L 65 18 94/42 04/02/23 00:01 68 18 92/51 04/01/23 22:30 62 18 92/41 04/01/23 20:00 67 18 92/52 04/01/23 19:09 97.3 F L 64 18 97/57 Pulse Ox 04/02/23 11:27 98 04/02/23 08:00 99 04/02/23 04:00 98 04/02/23 02:00 04/02/23 00:37 98 04/02/23 00:01 100 04/01/23 22:30 98 04/01/23 20:00 100 04/01/23 19:09 99 Intake and Output 04/02/23 04/02/23 04/02/23 06:59 14:59 22:59 Intake Total 40 Output Total 325 Balance -325 40 Intake: IV 40 Invasive Line 1 20 Invasive Line 2 20 Output: Urine 325 Other: Voiding Method Diaper Diaper Weight 70.851 kg GENERAL DESCRIPTION: Elderly male lying in bed, no distress. No tachypnea or accessory muscle of respiration use. HEENT: Shows Pallor , no scleral icterus. Oral mucous membrane is dry. No pharyngeal erythema or thrush NECK: Trachea central, no thyromegaly. LUNGS: Unlabored breathing. Clear to auscultation anteriorly. No wheeze or crackle. HEART: S1, S2, regular rate and rhythm. ABDOMEN: Soft, did have some distention EXTREMITIES: No edema of feet. SKIN: No rash, no masses palpable. NEUROLOGICAL: The patient is lethargic but arousable mood and affect normal. Results CBC & Chem 7: 04/04/23 09:53 04/04/23 09:53 Labs: Abnormal Lab Results - Last 24 Hours (Table) 04/01/23 04/01/23 04/01/23 Range/Units 19:26 19:27 19:27 RBC 2.50 L (4.30-5.90) m/uL Hgb 8.2 L (13.0-17.5) gm/dL Hct 25.3 L (39.0-53.0) % MCV 101.4 H (80.0-100.0) fL RDW 19.5 H (11.5-15.5) % Plt Count 87 L (150-450) k/uL Lymphocytes # 0.4 L (1.0-4.8) k/uL Macrocytosis PT 15.7 H (10.0-12.5) sec INR 1.5 H (<1.2) Potassium (3.5-5.1) mmol/L Chloride (98-107) mmol/L Carbon Dioxide (22-30) mmol/L BUN (9-20) mg/dL Creatinine (0.66-1.25) mg/dL Glucose (74-99) mg/dL POC Glucose (mg/dL) 173 H (70-110) mg/dL Plasma Lactic Acid Bryan (0.7-2.0) mmol/L Calcium (8.4-10.2) mg/dL Total Bilirubin (0.2-1.3) mg/dL Alkaline Phosphatase (38-126) U/L Ammonia (<30) umol/L Total Protein (6.3-8.2) g/dL Albumin (3.5-5.0) g/dL 04/01/23 04/01/23 04/01/23 Range/Units 19:27 19:27 22:19 RBC (4.30-5.90) m/uL Hgb (13.0-17.5) gm/dL Hct (39.0-53.0) % MCV (80.0-100.0) fL RDW (11.5-15.5) % Plt Count (150-450) k/uL Lymphocytes # (1.0-4.8) k/uL Macrocytosis PT (10.0-12.5) sec INR (<1.2) Potassium 5.5 H (3.5-5.1) mmol/L Chloride 112 H (98-107) mmol/L Carbon Dioxide 12 L (22-30) mmol/L BUN 79 H (9-20) mg/dL Creatinine 2.34 H (0.66-1.25) mg/dL Glucose 153 H (74-99) mg/dL POC Glucose (mg/dL) (70-110) mg/dL Plasma Lactic Acid Bryan 3.8 H* 3.2 H* (0.7-2.0) mmol/L Calcium 6.8 L (8.4-10.2) mg/dL Total Bilirubin 2.2 H (0.2-1.3) mg/dL Alkaline Phosphatase 554 H (38-126) U/L Ammonia 167 H (<30) umol/L Total Protein (6.3-8.2) g/dL Albumin 2.8 L (3.5-5.0) g/dL 04/02/23 04/02/23 04/02/23 Range/Units 01:00 03:59 03:59 RBC 2.40 L (4.30-5.90) m/uL Hgb 7.9 L (13.0-17.5) gm/dL Hct 24.9 L (39.0-53.0) % MCV 103.9 H (80.0-100.0) fL RDW 19.3 H (11.5-15.5) % Plt Count 71 L (150-450) k/uL Lymphocytes # 0.3 L (1.0-4.8) k/uL Macrocytosis Marked A PT (10.0-12.5) sec INR (<1.2) Potassium 5.4 H (3.5-5.1) mmol/L Chloride 114 H (98-107) mmol/L Carbon Dioxide 15 L (22-30) mmol/L BUN 80 H (9-20) mg/dL Creatinine 2.26 H (0.66-1.25) mg/dL Glucose 141 H (74-99) mg/dL POC Glucose (mg/dL) (70-110) mg/dL Plasma Lactic Acid Bryan 3.0 H* (0.7-2.0) mmol/L Calcium 6.5 L (8.4-10.2) mg/dL Total Bilirubin 2.1 H (0.2-1.3) mg/dL Alkaline Phosphatase 458 H (38-126) U/L Ammonia (<30) umol/L Total Protein 5.9 L (6.3-8.2) g/dL Albumin 2.6 L (3.5-5.0) g/dL 04/02/23 04/02/23 04/02/23 Range/Units 03:59 08:11 11:22 RBC (4.30-5.90) m/uL Hgb (13.0-17.5) gm/dL Hct (39.0-53.0) % MCV (80.0-100.0) fL RDW (11.5-15.5) % Plt Count (150-450) k/uL Lymphocytes # (1.0-4.8) k/uL Macrocytosis PT (10.0-12.5) sec INR (<1.2) Potassium (3.5-5.1) mmol/L Chloride (98-107) mmol/L Carbon Dioxide (22-30) mmol/L BUN (9-20) mg/dL Creatinine (0.66-1.25) mg/dL Glucose (74-99) mg/dL POC Glucose (mg/dL) (70-110) mg/dL Plasma Lactic Acid Bryan 2.7 H* 2.6 H* 2.5 H* (0.7-2.0) mmol/L Calcium (8.4-10.2) mg/dL Total Bilirubin (0.2-1.3) mg/dL Alkaline Phosphatase (38-126) U/L Ammonia (<30) umol/L Total Protein (6.3-8.2) g/dL Albumin (3.5-5.0) g/dL 04/02/23 Range/Units 15:05 RBC (4.30-5.90) m/uL Hgb (13.0-17.5) gm/dL Hct (39.0-53.0) % MCV (80.0-100.0) fL RDW (11.5-15.5) % Plt Count (150-450) k/uL Lymphocytes # (1.0-4.8) k/uL Macrocytosis PT (10.0-12.5) sec INR (<1.2) Potassium (3.5-5.1) mmol/L Chloride (98-107) mmol/L Carbon Dioxide (22-30) mmol/L BUN (9-20) mg/dL Creatinine (0.66-1.25) mg/dL Glucose (74-99) mg/dL POC Glucose (mg/dL) (70-110) mg/dL Plasma Lactic Acid Bryan 2.2 H* (0.7-2.0) mmol/L Calcium (8.4-10.2) mg/dL Total Bilirubin (0.2-1.3) mg/dL Alkaline Phosphatase (38-126) U/L Ammonia 110 H (<30) umol/L Total Protein (6.3-8.2) g/dL Albumin (3.5-5.0) g/dL Assessment and Plan (1) SIRS (systemic inflammatory response syndrome) Status: Acute Code(s): R65.10 - SIRS OF NON-INFECTIOUS ORIGIN W/O ACUTE ORGAN DYSFUNCTION SNOMED Code(s): 011216480 (2) Hypothermia Status: Acute Code(s): T68.XXXA - HYPOTHERMIA, INITIAL ENCOUNTER SNOMED Code(s): 831286026 (3) Allergy to multiple antibiotics Status: Acute Code(s): Z88.1 - ALLERGY STATUS TO OTHER ANTIBIOTIC AGENTS SNOMED Code(s): 030150611 Plan: 1patient with SIRS in this patient who did have hypothermia also elevated lactic acid patient presented to hospital with generalized weakness and not feeling well did have some abdominal distention concerning for possible abdominal source with a question of possible SBP versus liver etiology 2patient with multiple antibiotic ALLERGIES that would limit the number of antibiotic safe to use 3patient with renal insufficiency that would limit the number of antibiotics as well as investigation 4we will obtain a CT of abdominal pelvis with oral contrast to better define under lying abdominal pathology 5continue with Rocephin we will add Flagyl while waiting for the workup to be completed We will follow on clinical condition and cultures to further adjust medication if needed Thank you for this consultation we will follow the patient along with you Dictation was produced using [employer] dictation software. please excuse any grammatical, word or spelling errors. Time with Patient: Greater than 30
[2023-04-02] MEDS: CALCIUM CARB-VIT D 500 MG-5 MCG TAB PO SCH (23:19)
[2023-04-02] MEDS: glipiZIDE 5 MG TAB PO SCH (23:20)
[2023-04-02] MEDS: PANTOPRAZOLE 40 MG/10 ML VIAL IV SCH (23:44)
[2023-04-02] MEDS: metroNIDAZOLE-NS PMX 500 MG in SALINE 1 100ML.BAG IVPB SCH (23:46)
--- NOTE | 2023-04-03 00:58 | HP ---
HISTORY AND PHYSICAL CHIEF COMPLAINT: Generalized weakness and tiredness and ascites. HISTORY OF PRESENT ILLNESS: This is a 72-year-old gentleman with a past medical history of prostate cancer with METS and as well as cirrhosis of liver, was having repeated ascitic taps, but currently the patient is complaining of tiredness, weakness, abdominal distention. The patient admitted for further evaluation and treatment. The patient had elevated lactic acid sepsis. There is no history of any fever, rigors, chills at this time. The patient is receiving prostate cancer treatment from Urology. The creatinine is 2.26 indicating acute renal failure also. PAST MEDICAL HISTORY: History of prostate cancer, history of cirrhosis of liver with varices, diabetes mellitus, multiple complex medical issues, rest of the history and rest of the chart is also reviewed. HOME MEDICATIONS: Reviewed include prednisone dose and rest of medications reviewed. ALLERGIES: Reviewed include Niacin. FAMILY HISTORY: No history of heart disease or strokes in the family. SOCIAL HISTORY: Quit smoking. Previous history of alcohol. REVIEW OF SYSTEMS: A 14-point review of systems negative as mentioned earlier. PHYSICAL EXAMINATION: VITAL SIGNS: Pulse is 67, blood pressure 80/64, respirations 16. HEENT: Conjunctivae normal. NECK: No jugular venous distention. CARDIOVASCULAR: S1, S2 muffled. RESPIRATIONS: Few scattered rhonchi. ABDOMEN: Soft, significant ascites. EXTREMITIES: Legs no edema, no swelling. NERVOUS SYSTEM: Diffusely weak. SKIN: No rash No ulcer, rash, bleeding. JOINTS: No active deforming arthropathy. LABORATORY DATA: Hemoglobin 7.9. Rest of the labs are noted. ASSESSMENT: 1. Acute renal failure from dehydration. 2. Prerenal renal factors. 3. Possible sepsis with elevated lactic acid. 4. Ascites secondary to cirrhosis liver. 5. Cirrhosis liver related to hypotension. 6. CA prostate, on chemotherapy. 7. Diabetes type 2. 8. Chronic liver disease. 9. History of decubitus, left buttock. 10.History of multiple paracentesis. 11.Full code. RECOMMENDATIONS: This 72-year-old gentleman presented with multiple complex medical issues, we will monitor the patient closely. I would recommend cautious IV hydration, empiric antibiotics, obtain cultures. Closely follow with Urology, Infectious Disease evaluation, ascitic tap. Hold off antihypertensive medication because of low blood pressure. Prognosis guarded because of multiple complex medical issues and further recommendations to follow. See orders for details. MMODL / IJN: [id number] / RAMA
--- NOTE | 2023-04-03 06:53 | CA ---
Transthoracic Echo Report Name: Eleazar Friedman Age: 72 Gender: M : 1950 Exam Date: 04/02/2023 14:15 Exam Location: [facility] Ht (in): 66 Wt (lb): 156 Ordering Physician: Yarely Meyer MD Attending/Referring Phys: Drama Professor Brooklyn Darby RDCS Procedure CPT: Indications: chf Cardiac Hx: Technical Quality: Fair Contrast 1: Total Dose (mL): Contrast 2: Total Dose (mL): MEASUREMENTS (Male / Female) Normal Values 2D ECHO LV Diastolic Diameter PLAX 4.3 cm 4.2 - 5.9 / 3.9 - 5.3 cm LV Systolic Diameter PLAX 3.1 cm IVS Diastolic Thickness 0.7 cm 0.6 - 1.0 / 0.6 - 0.9 cm LVPW Diastolic Thickness 0.8 cm 0.6 - 1.0 / 0.6 - 0.9 cm LV Relative Wall Thickness 0.4 LA Systolic Diameter LX 3.2 cm 3.0 - 4.0 / 2.7 - 3.8 cm LV Diastolic Volume MOD 4C 104.5 cm??? LV Systolic Volume MOD 4C 42.8 cm??? LV Ejection Fraction MOD 4C 59.1 % LV Cardiac Index MOD 4C 2367.1 cm???/min???m??? LV Diastolic Length 4C 9.5 cm LV Systolic Length 4C 7.7 cm LV Diastolic Volume MOD 2C 80.8 cm??? LV Systolic Volume MOD 2C 27.4 cm??? LV Ejection Fraction MOD 2C 66.0 % LV Cardiac Index MOD 2C 2044.8 cm???/min???m??? LV Diastolic Length 2C 8.4 cm LV Systolic Length 2C 6.4 cm LA Volume 49.7 cm??? 18 - 58 / 22 - 52 cm??? LA Volume Index 27.2 cm???/m??? 16 - 28 cm???/m??? M-MODE Aortic Root Diameter MM 3.4 cm MV E Point Septal Separation 1.3 cm AV Cusp Separation MM 2.6 cm DOPPLER AV Peak Velocity 148.1 cm/s AV Peak Gradient 8.8 mmHg MV Area PHT 2.5 cm??? Mitral E Point Velocity 100.4 cm/s Mitral A Point Velocity 87.9 cm/s Mitral E to A Ratio 1.1 MV Deceleration Time 307.8 ms MV E' Velocity 7.7 cm/s Mitral E to MV E' Ratio 13.0 TR Peak Velocity 262.7 cm/s TR Peak Gradient 27.6 mmHg Right Ventricular Systolic Press 32.6 mmHg FINDINGS Left Ventricle Left ventricular ejection fraction is estimated at 55-60 %. Left ventricular cavity size normal. Left ventricular wall thickness normal. Right Ventricle Mild right ventricular dilatation. Right ventricular systolic pressure within normal limits. Right Atrium Normal right atrial size. Left Atrium Normal left atrial size. Mitral Valve Mitral valve thickened. Mild mitral annular calcification. . No mitral stenosis or prolapse.trace to mild mitral regurgitation. Aortic Valve Trileaflet aortic valve. Trace aortic regurgitation.aortic valve sclerosis. Tricuspid Valve Structurally normal tricuspid valve. Mild tricuspid regurgitation. Pulmonic Valve No pulmonic regurgitation.pulmonic valve not well visualized. Pericardium No pericardial effusion. Pleural effusion. Aorta Normal size aortic root and proximal ascending aorta. CONCLUSIONS 1. Normal left ventricular size and systolic function 2. Limited Doppler study with trace to mild mitral and tricuspid regurgitation and normal right ventricular systolic pressure Previewed by: Dr. Kely Tidwell MD (Electronically Signed) Final Date: 03 April 2023 06:52
--- NOTE | 2023-04-03 08:17 | CT ---
EXAMINATION TYPE: CT abdomen pelvis wo con CT DLP: 767 mGycm, Automated exposure control for dose reduction was used. DATE OF EXAM: 04/02/2023 11:01 PM COMPARISON: None CLINICAL INDICATION:Male, 72 years old with history of sepsis , abd distension; SEPSIS ABDOMINAL DIST ENSION TECHNIQUE: Axial CT abdomen pelvis wo con;Sagittal and coronal reformats were created on a separate workstation. Contrast used: mL of , (none if empty) Oral contrast used: (none if empty) FINDINGS: LOWER CHEST: Trace bilateral pleural effusions with peripheral reticulation. Heart is mildly enlarged . Scattered nodular changes along the periphery also present. ABDOMEN LIVER: Shrunken nodular appearance. No obvious liver mass identified. GALLBLADDER AND BILE DUCTS: High-density probable gallstones in the gallbladder lumen. PANCREAS: Unremarkable. SPLEEN: Unremarkable. ADRENAL GLANDS: Unremarkable. KIDNEYS AND URETERS: No evidence of hydronephrosis or renal calculus. The ureters are unremarkable. PELVIS BLADDER: Unremarkable REPRODUCTIVE: Prostatectomy changes. ABDOMEN & PELVIS STOMACH AND BOWEL: No evidence of bowel obstruction. PERITONEUM/RETROPERITONEUM: No evidence of pneumoperitoneum. Large fluid in the abdomen. VASCULATURE: No evidence of aortic aneurysm. Paraesophageal varices are noted as well as upper abdomi nal varices.7 MUSCULOSKELETAL: No acute osseous abnormalities, left hip fixation hardware appears intact. Scattered sclerotic foci throughout the osseous structures compatible with malignancy. LYMPH NODES: No gross evidence for lymphadenopathy. SOFT TISSUE/ABDOMINAL WALL: Unremarkable IMPRESSION: 1. Scattered peripheral reticular opacities in the lungs. Represent chronic interstitial lung change s. Few nodular changes are also present along the periphery. No additional evidence for acute infecti ous process. 2. Large abdominal ascites with evidence of hepatic cirrhosis. 3. There is scattered sclerotic foci throughout the osseous structures most compatible with metastat ic disease. Given prostatectomy changes findings likely represent metastatic prostate cancer. 4. Trace bilateral pleural effusions. 5. Cholelithiasis.
--- NOTE | 2023-04-03 08:43 | P.PN ---
Subjective Progress Note Date: 04/03/23 Principal diagnosis: Metastatic prostate cancer Patient has metastatic castrate resistant prostate cancer. He states that he is feeling somewhat better. CT scan shows evidence of osseous metastases, as well as massive ascites and cirrhosis. I spoke with Dr. Castro. The patient has not undergone genetic testing to determine whether he might benefit from a PARP inhibitor. The patient states that he has not begun taking Erleada out of concern regarding itching. Objective - Vital Signs Vital signs: Vital Signs Temp 97.2 F L 04/03/23 04:00 Pulse 81 04/03/23 04:00 Resp 16 04/03/23 04:00 BP 109/52 04/03/23 04:00 Pulse Ox 98 04/03/23 04:00 FiO2 Intake & Output 04/02/23 04/03/23 04/03/23 18:59 06:59 18:59 Intake Total 40 0 Output Total 675 Balance 40 -675 Intake: IV 40 Invasive Line 1 20 Invasive Line 2 20 Oral 0 Output: Urine 675 Other: Voiding Method Diaper Indwelling Catheter # Bowel Movements 1 - Constitutional General appearance: Present: thin - Psychiatric Psychiatric: Present: A&O x's 3 - Labs CBC & Chem 7: 04/02/23 03:59 04/02/23 03:59 Labs: Abnormal Lab Results - Last 24 Hours (Table) 04/02/23 04/02/23 04/02/23 Range/Units 08:11 11:22 15:05 Plasma Lactic Acid Bryan 2.6 H* 2.5 H* 2.2 H* (0.7-2.0) mmol/L Ammonia 110 H (<30) umol/L Assessment and Plan (1) Malignant neoplasm of prostate Current Visit: Yes Status: Acute Code(s): C61 - MALIGNANT NEOPLASM OF PROSTATE SNOMED Code(s): 803124874 (2) Secondary malignant neoplasm of bone Current Visit: Yes Status: Acute Code(s): C79.51 - SECONDARY MALIGNANT NEOPLASM OF BONE SNOMED Code(s): 11631011 Plan: 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 I have stressed the need for him to begin taking Erleada. He is due for his next Lupron injection in mid May. Arrangements will be made for him to undergo genetic testing to determine whether he may benefit from a PARP inhibitor. Unfortunately, his overall prognosis is poor.
[2023-04-03] MEDS ORDERED: SPIRONOLACTONE 25 MG TAB PO SCH (09:00)
[2023-04-03] MEDS ORDERED: predniSONE 50 MG TAB PO SCH (09:00)
[2023-04-03] MEDS: FERROUS SULFATE 325 MG TAB PO SCH (09:54)
[2023-04-03] MEDS: ALBUMIN HUMAN 25% 50 ML in EMPTY BAG 1 BAG IVPB ONE (10:42)
[2023-04-03] MEDS: ALBUMIN HUMAN 25% 50 ML in EMPTY BAG 1 BAG IVPB SCH (11:00)
--- NOTE | 2023-04-03 12:13 | US ---
Ultrasound-guided paracentesis. DATE OF EXAM: 04/03/2023 CLINICAL HISTORY: Ascites The procedure was discussed with the patient. The risks, complications, benefits, and alternatives we re discussed and any questions were answered. Informed consent was obtained. The patient was placed s upine on the ultrasound table and prepped and draped in the usual sterile fashion. All elements of maximal barrier technique were utilized. Under ultrasound guidance, access into the right lower quadrant was obtained, via the paracentesis catheter system and direct ultrasound guidanc e. Approximately 7.1 liters of straw-colored fluid was removed. The patient was stable throughout the pr ocedure and remained stable upon discharge from Department of Radiology. IMPRESSION: Successful paracentesis under ultrasound guidance.
[2023-04-03] MEDS: MULTIVITAMINS, THERA 1 EACH TAB PO SCH (13:11)
[2023-04-03] MEDS: MAGNESIUM OXIDE 400 MG TAB PO SCH (13:11)
[2023-04-03 14:06] VITALS: BMI 25.2
--- NOTE | 2023-04-03 14:20 | CDI ---
Documentation Clarification Form Date: 04/03/2023 01:16:28 PM From: Kathy Goetz RN, CCDS Phone: [phone] Admit Date: 04/01/2023 08:33:00 PM Patient Name: Eleazar Friedman Visit Number: [id number] Discharge Date: ATTENTION: The Clinical Documentation Specialists (CDI) and [facility] Coding Staff appreciate your assistance in clarifying documentation. Please respond to the clarification below the line at the bottom and electronically sign. The CDI & [facility] Coding staff will review the response and follow-up if needed. Please note: Queries are made part of the Legal Health Record. If you have any questions, please contact the author of this message via ITS. Dr. Yarely Meyer Your patient has the documented Hepatic encephalopathy in the ED clinical impression. Additional clarification regarding the etiology/cause of this symptom is requested. History/Risk Factors: Diabetes Mellitus, Liver Disease, cirrhosis, Osteoarthritis, Prostate Disorder, Skin Disorder, Former smoker Clinical Indicators: 72-year-old male presenting to the emergency department with concerns with general weakness. There was some question of some confusion however patient does not feel confused. Patient obeys commands, confused, unable to comprehend, intermittent confusion. He has abdominal ascites. 04/01 VS97/57 64 18 87.3 99% RA 04/01 Labs: WBC 8.6 HGB 8.2 HCT 25.3, K+ 5.5 CL 112, BUN 79, CR 2.34 GFR 27, Lactic acid 3.8, 3.2 Total Bilirubin 2.2, Ammonia 167 CT Brain: no acute process CXR: no ac process remote right -sided healing rib rx Treatment: Rocephin 2 GM IVPB Q 24 HRS 04/02-04/03 Flagyl 500 MG IVPB Q8 HRS 04/03 Solu-Medrol 60 MG IV Q6 HR 04/02-04/03 04/03 Paracentesis Please clarify the etiology of the symptom of Altered Mental Status: [ ] Metabolic Encephalopathy due acute renal failure, [ ] Hepatic Encephalopathy due to elevated ammonia level [ ] Metabolic Encephalopathy and Hepatic Encephalopathy due to acute renal failure and elevated ammonia level, [ ] Other condition (please specify) [ ] Unable to determine (Template Last Revised: March 2020) Hepatic Encephalopathy due to elevated ammonia level MTDD
--- NOTE | 2023-04-03 14:57 | P.PN ---
Subjective Progress Note Date: 04/03/23 Patient is 72-year-old male who was admitted with weakness and fatigue along with abdominal distention. Patient has been having recurrent paracentesis palliative in the outpatient setting usually every 2 weeks. Patient has been following with urology outpatient and was to be on treatment although has not been taking per patient and . Patient was also admitted with acute renal failure with concerns of abdominal infection as well as sepsis. Patient did undergo paracentesis today with approximately 7 L removed and will be receiving albumin during and post. Patient underwent swallow study and modified barium swallow and is feeling miserably per speech and aspirating on everything. reports he has not eaten in 5 days. Patient is hypotensive and unable to take any oral medications. Multiple medical consultations following and patient was started on antibiotics with concerns of sepsis, present on admission. Review of systems: Constitutional: reports of fatigue, no fever, or chills Cardiovascular: No reports of chest pain or palpitations Respiratory: No reports of shortness of breath or cough GI: reports of nausea, no reports of vomiting, : No reports of dysuria or retention Neurovascular: reports of generalized weakness All medications have been reviewed Active Medications Acetaminophen (Acetaminophen Tab 325 Mg Tab) 650 mg PO Q6HR PRN PRN Reason: Fever and/ or Pain Calcium Carbonate (Calcium Carb-Vit D 500 Mg-5 Mcg Tab) 1 each PO BID [facility] Last Admin: 04/03/23 09:54 Dose: Not Given Ferrous Sulfate (Ferrous Sulfate 325 Mg Tab) 325 mg PO DAILY [facility] Last Admin: 04/03/23 09:54 Dose: Not Given Glipizide (Glipizide 5 Mg Tab) 5 mg PO BID [facility] Last Admin: 04/03/23 09:55 Dose: Not Given Hydromorphone HCl (Hydromorphone 0.5 Mg/0.5 Ml Syringe) 0.5 mg IVP Q6HR PRN PRN Reason: Severe Pain (Scale 7 to 10) Sodium Chloride (Saline 0.9%) 1,000 mls @ 75 mls/hr IV .[id number] [facility] Last Admin: 04/02/23 23:47 Dose: Not Given Ceftriaxone Sodium 2 gm/ (Sodium Chloride) 50 mls @ 100 mls/hr IVPB Q24HR [facility]; Protocol Last Admin: 04/03/23 11:37 Dose: 100 mls/hr Metronidazole 500 mg/ IV (Solution) 100 mls @ 100 mls/hr IVPB Q8HR [facility]; Protocol Last Admin: 04/03/23 09:35 Dose: 100 mls/hr Iopamidol (Iopamidol Contrast (Oral Use) Vial) 30 ml PO Q60M PRN PRN Reason: CT Scan Stop: 04/03/23 18:25 Lactulose (Lactulose 20 Gm/30 Ml Cup) 30 gm PO TID [facility] Last Admin: 04/03/23 09:55 Dose: Not Given Magnesium Oxide (Magnesium Oxide 400 Mg Tab) 400 mg PO DAILY@1200 [facility] Last Admin: 04/03/23 13:11 Dose: Not Given Megestrol Acetate (Megestrol 40 Mg Tab) 20 mg PO BID [facility] Last Admin: 04/03/23 09:55 Dose: Not Given Methylprednisolone Sodium Succinate (Methylprednisolone Sod Succi 125 Mg/2 Ml Vial) 60 mg IV Q6HR [facility] Last Admin: 04/03/23 13:18 Dose: 60 mg Midodrine (Midodrine 5 Mg Tab) 5 mg PO AC-BID [facility] Last Admin: 04/03/23 06:38 Dose: Not Given Multivitamins (Multivitamins, Thera 1 Each Tab) 1 each PO DAILY@1200 [facility] Last Admin: 04/03/23 13:11 Dose: Not Given Naloxone HCl (Naloxone 0.4 Mg/Ml 1 Ml Vial) 0.2 mg IV Q2M PRN PRN Reason: Opioid Reversal Pantoprazole Sodium (Pantoprazole 40 Mg/10 Ml Vial) 40 mg IV BID [facility] Last Admin: 04/03/23 09:36 Dose: 40 mg Tamsulosin HCl (Tamsulosin 0.4 Mg Cap.Er.24h) 0.4 mg PO PC-SUPPER [facility] Last Admin: 04/02/23 16:36 Dose: Not Given PHYSICAL EXAMINATION: GENERAL: The patient is a 72-year-old male who is lethargic although arousable, alert and oriented x3, extremely ill-appearing, cachectic, elderly appearing, thin built HEENT: Pupils are round and equally reacting to light. EOMI. no scleral icterus. No conjunctival pallor. Normocephalic, atraumatic. No pharyngeal erythema. No thyromegaly. CARDIOVASCULAR: S1 and S2 muffled PULMONARY: diminished breath sounds bilaterally with coarse rhonchi noted. ABDOMEN: soft. Thin, slightly less distended post paracentesis. Hypoactive bowel sounds. No palpable organomegaly. MUSCULOSKELETAL: No joint swelling or deformity. EXTREMITIES: No cyanosis, clubbing, or pedal edema. Extensive muscle wasting noted of upper and lower extremities NEUROLOGICAL: Gross neurological examination did not reveal any focal deficits. Diffuse weakness SKIN: No rashes. Assessment: Metabolic encephalopathy and hepatic encephalopathy secondary to acute renal failure as well as elevated ammonia level, ammonia is 110 Aspiration as noted on modified barium swallow, continue n.p.o. Acute renal failure from dehydration, improving Elevated lactic acidosis with features of sepsis, present on admission Ascites secondary to liver cirrhosis, ongoing palliative paracentesis in the outpatient setting Liver cirrhosis related to hypotension Prostate cancer, with metastasis to the bone, was supposed to be on therapy with urology although has not been taking Diabetes melitis, type II Chronic liver disease History of decubitus ulcer on the left buttock, now healed History of esophageal varices GI prophylaxis DVT prophylaxis No code Plan: Patient with multiple medical consultations following including infectious disease, urology, and interventional radiology. Patient is status post paracentesis today of approximately 7 L removed and is receiving albumin during and post Patient also has not eaten in over 5 days and having difficulties with swallowing and aspirating and underwent modified barium swallow study and is completely aspirating on everything recommending n.p.o. and hospice at this po int Patient was evaluated by urology and was supposed to be taking immunotherapy although has not been taking Patient receiving palliative paracentesis every 2 weeks and is becoming more frequent. Patient with features of sepsis and DRAKE with hypotension, leukocytosis and lactic acidosis with concerns of possible spontaneous bacterial peritonitis as patient has chronic ascites. Patient is continued on antibiotics in the form of ceftriaxone and will continue. Patient also being started on Fla gyl per ID recommendations and recommending CT of the abdomen. Unfortunately patient is unable to tolerate anything oral which will make the study somewhat suboptimal. Patient and family report he is no code in the status was addressed and changed as they have paperwork. Will need to discuss further about treatment options moving forward as patient is not a candidate for a PEG tube or Dobbhoff feedings. Will discuss further with patient and family about overall poor prognosis and treatment plan moving forward Recommend follow-up labs in the a.m. Continue patient as n.p.o. and gentle IV hydration The impression and plan of care has been dictated by Maira Rios, nurse practitioner as directed. Dr. Mitch MD I have performed a history and examination and MDM of this patient, discussed the same with the dictator, and agree with the dictator's assessment and plan a s written ,documented as a scribe. Based on total visit time, I have performed more than 50% of the visit. Any additional findings or plans will be noted. Objective - Vital Signs Vital signs: Vital Signs Temp 97.4 F L 04/03/23 08:00 Pulse 74 04/03/23 11:20 Resp 16 04/03/23 11:20 BP 93/53 04/03/23 11:20 Pulse Ox 95 04/03/23 11:20 FiO2 Intake & Output 04/02/23 04/03/23 04/03/23 18:59 06:59 18:59 Intake Total 40 0 Output Total 675 Balance 40 -675 Intake: IV 40 Invasive Line 1 20 Invasive Line 2 20 Oral 0 Output: Urine 675 Other: Voiding Method Diaper Indwelling Catheter Indwelling Catheter # Bowel Movements 1 - Labs CBC & Chem 7: 04/02/23 03:59 04/02/23 03:59 Labs: Abnormal Lab Results - Last 24 Hours (Table) 04/02/23 Range/Units 15:05 Plasma Lactic Acid Bryan 2.2 H* (0.7-2.0) mmol/L Ammonia 110 H (<30) umol/L
--- NOTE | 2023-04-03 15:15 | FL ---
Modified barium swallow. HISTORY: Dysphagia. Modified barium swallow was performed with the department of speech pathology. The patient was prese nted with various consistencies of barium. Silent aspiration with the thin liquid barium and nectar thick barium.Full report is to follow from [facility] department of speech pathology. Impression: As above
--- NOTE | 2023-04-03 16:14 | P.PN ---
"Subjective Progress Note Date: 04/03/23 Principal diagnosis: Reason for follow-up is possible SBP Patient is a 72-year-old male with a past medical his significant for diabetes mellitus osteoarthritis history of prostate cancer diagnosed in 2016 and pancreatitis the patient has been brought into the hospital for evaluation of generalized weakness, patient was noted to be hypothermic and did have elevated lactic acid prompting this infectious disease consultation CT abdominal pelvis shows ascites but no other abnormality patient is status post paracentesis removal of 7 L of fluid unfortunately no analysis was done. On today's evaluation that is 04/03/2023, the patient remains to be afebrile, patient is currently breathing comfortably on room air, the patient has been complaining of feeling weak denies chest pain and no significant cough, patient denies abdominal pain, no nausea no vomiting or any diarrhea has been reported. No CBC was done today, lactic acid normalized to 2.0 cultures pending Objective - Vital Signs Vital signs: Vital Signs Temp 97.4 F L 04/03/23 08:00 Pulse 79 04/03/23 08:57 Resp 16 04/03/23 08:57 BP 115/53 04/03/23 08:00 Pulse Ox 98 04/03/23 08:00 FiO2 Intake & Output 04/02/23 04/03/23 04/03/23 18:59 06:59 18:59 Intake Total 40 0 Output Total 675 Balance 40 -675 Intake: IV 40 Invasive Line 1 20 Invasive Line 2 20 Oral 0 Output: Urine 675 Other: Voiding Method Diaper Indwelling Catheter Indwelling Catheter # Bowel Movements 1 - Exam GENERAL DESCRIPTION: An elderly male lying in bed in no distress RESPIRATORY SYSTEM: Unlabored breathing , decreased breath sounds at bases HEART: S1 S2 regular rate and rhythm , ABDOMEN: Soft , no tenderness EXTREMITIES: No edema feet - Labs CBC & Chem 7: 04/02/23 03:59 04/02/23 03:59 Labs: Abnormal Lab Results - Last 24 Hours (Table) 04/02/23 04/02/23 Range/Units 11:22 15:05 Plasma Lactic Acid Bryan 2.5 H* 2.2 H* (0.7-2.0) mmol/L Ammonia 110 H (<30) umol/L Assessment and Plan (1) Lactic acidosis Current Visit: Yes Status: Acute Code(s): E87.20 - ACIDOSIS, UNSPECIFIED SNOMED Code(s): 75733531 (2) Allergy to multiple antibiotics Current Visit: Yes Status: Acute Code(s): Z88.1 - ALLERGY STATUS TO OTHER ANTIBIOTIC AGENTS SNOMED Code(s): 776277255 Plan: 1patient with SIRS in this patient who did have hypothermia also elevated lac tic acid patient presented to hospital with generalized weakness and not feeling well did have some abdominal distention concerning for possible abdominal source with a question of possible SBP versus liver etiology 2patient with multiple antibiotic ALLERGIES that would limit the number of antibiotic safe to use 3patient with renal insufficiency that would limit the number of antibiotics as well as investigation 4patient did have CT of abdominal pelvis with oral contrast with evidence of ascites but no other acute abnormality 5patient to continue with Rocephin and monitor clinical course closely Dictation was produced using [id number] dictation software. please excuse any grammatical, word or spelling errors. Time with Patient: Less than 30"
[2023-04-04 10:27] LABS: African American GFR (CKD) 35 (>60 ml/min/1.73 sqM); Anion Gap 16 mmol/L; Blood Urea Nitrogen 81 mg/dL (9-20); Carbon Dioxide 11 mmol/L (22-30); Chloride 121 mmol/L (98-107); Glucose 208 mg/dL (74-99); Magnesium 2.3 mg/dL (1.6-2.3); Non-African American GFR(CKD) 30 (>60 ml/min/1.73 sqM); Potassium 5.3 mmol/L (3.5-5.1); Sodium 148 mmol/L (137-145)
[2023-04-04 10:28] LABS: Anisocytosis Moderate; Basophils % (A) 0 %; Eosinophils % (A) 0 %; HCT 22.4 % (39.0-53.0); Hypochromasia Marked; Lymphocytes # (A) 0.2 k/uL (1.0-4.8); Lymphocytes % (A) 2 %; MCH 33.1 pg (25.0-35.0); MCHC 30.8 g/dL (31.0-37.0); MCV 107.5 fL (80.0-100.0); Macrocytosis Marked; Mean Platelet Volume 10.7; Monocytes # (A) 0.3 k/uL (0-1.0); Monocytes % (A) 4 %; Neutrophils # (A) 8.7 k/uL (1.3-7.7); Neutrophils % (A) 93 %; RBC 2.09 m/uL (4.30-5.90); RDW 21.2 % (11.5-15.5); WBC 9.3 k/uL (3.8-10.6)
[2023-04-04 10:30] LABS: Calcium 6.1 mg/dL (8.4-10.2)
[2023-04-04 10:32] LABS: HGB 6.9 gm/dL (13.0-17.5); Platelet Count 62 k/uL (150-450)
[2023-04-04] MEDS: DEXTROSE 5% IN WATER 1,000 ML IV ONE (11:09)
--- NOTE | 2023-04-04 12:45 | P.PN ---
Subjective Progress Note Date: 04/04/23 Principal diagnosis: Reason for follow-up is possible SBP Patient is a 72-year-old male with a past medical his significant for diabetes mellitus osteoarthritis history of prostate cancer diagnosed in 2016 and pancreatitis the patient has been brought into the hospital for evaluation of generalized weakness, patient was noted to be hypothermic and did have elevated lactic acid prompting this infectious disease consultation CT abdominal pelvis shows ascites but no other abnormality patient is status post paracentesis removal of 7 L of fluid unfortunately no analysis was done. On today's evaluation that is 04/04/2023, the patient is afebrile, patient is on room air, the patient denies chest pain shortness of breath or cough, patient denies nausea no vomiting no abdominal pain and feeling better, patient is more awake alert with at the bedside. Patient did have a white count of 9.3, creatinine is 2.12 blood culture negative Objective - Vital Signs Vital signs: Vital Signs Temp 96.2 F L 04/04/23 11:22 Pulse 86 04/04/23 11:22 Resp 22 04/04/23 11:22 BP 103/58 04/04/23 11:22 Pulse Ox 98 04/04/23 11:22 FiO2 Intake & Output 04/03/23 04/04/23 04/04/23 18:59 06:59 18:59 Output Total 1050 Balance -1050 Weight 70.851 kg 70.851 kg Output: Urine 1050 Other: Voiding Method Indwelling Catheter Indwelling Catheter Indwelling Catheter # Bowel Movements 1 - Exam GENERAL DESCRIPTION: An elderly male lying in bed in no distress RESPIRATORY SYSTEM: Unlabored breathing , decreased breath sounds at bases HEART: S1 S2 regular rate and rhythm , ABDOMEN: Soft , no tenderness EXTREMITIES: No edema feet - Labs CBC & Chem 7: 04/04/23 09:53 04/04/23 09:53 Labs: Abnormal Lab Results - Last 24 Hours (Table) 04/04/23 04/04/23 04/04/23 Range/Units 09:53 09:53 09:53 RBC 2.09 L (4.30-5.90) m/uL Hgb 6.9 L* (13.0-17.5) gm/dL Hct 22.4 L (39.0-53.0) % MCV 107.5 H (80.0-100.0) fL MCHC 30.8 L (31.0-37.0) g/dL RDW 21.2 H (11.5-15.5) % Plt Count 62 L (150-450) k/uL Neutrophils # 8.7 H (1.3-7.7) k/uL Lymphocytes # 0.2 L (1.0-4.8) k/uL Macrocytosis Marked A Sodium 148 H (137-145) mmol/L Potassium 5.3 H (3.5-5.1) mmol/L Chloride 121 H (98-107) mmol/L Carbon Dioxide 11 L (22-30) mmol/L BUN 81 H (9-20) mg/dL Creatinine 2.12 H (0.66-1.25) mg/dL Glucose 208 H (74-99) mg/dL Calcium 6.1 L* (8.4-10.2) mg/dL Ammonia 59 H (<30) umol/L Microbiology - Last 24 Hours (Table) 04/02/23 15:05 Blood Culture - Preliminary Blood Assessment and Plan (1) Lactic acidosis Current Visit: Yes Status: Acute Code(s): E87.20 - ACIDOSIS, UNSPECIFIED SNOMED Code(s): 08799744 (2) Allergy to multiple antibiotics Current Visit: Yes Status: Acute Code(s): Z88.1 - ALLERGY STATUS TO OTHER ANTIBIOTIC AGENTS SNOMED Code(s): 784918627 Plan: 1patient with SIRS in this patient who did have hypothermia also elevated lactic acid patient presented to hospital with generalized weakness and not feeling well did have some abdominal distention concerning for possible abdominal source with a question of possible SBP versus liver etiology 2patient with multiple antibiotic ALLERGIES that would limit the number of antibiotic safe to use 3patient with renal insufficiency that would limit the number of antibiotics as well as investigation 4patient did have CT of abdominal pelvis with oral contrast with evidence of ascites but no other acute abnormality 5patient is status post paracentesis unfortunately cell count and culture were not done patient did have some clinical improvement continue with Rocephin and will monitor clinical course closely Family at the bedside questions answered Dictation was produced using [employer] dictation software. please excuse any grammatical, word or spelling errors. Time with Patient: Less than 30
--- NOTE | 2023-04-04 18:07 | P.PN ---
Subjective Progress Note Date: 04/04/23 Patient is 72-year-old male who was admitted with weakness and fatigue along with abdominal distention. Patient has been having recurrent paracentesis palliative in the outpatient setting usually every 2 weeks. Patient has been following with urology outpatient and was to be on treatment although has not been taking per patient and . Patient was also admitted with acute renal failure with concerns of abdominal infection as well as sepsis. Patient did undergo paracentesis today with approximately 7 L removed and will be receiving albumin during and post. Patient underwent swallow study and modified barium swallow and is feeling miserably per speech and aspirating on everything. reports he has not eaten in 5 days. Patient is hypotensive and unable to take any oral medications. Multiple medical consultations following and patient was started on antibiotics with concerns of sepsis, present on admission. 04/04/2023 Patient is seen and evaluated in follow-up today with multiple family members present discussing overall prognosis. Patient with significant comorbidities including prostate cancer with metastasis to the bone chronic cirrhosis with liver disease elevated ammonia has been having significant decline over the last few days. Hemoglobin today is 6.9 and family is discussing further with hospice as patient family would like to take him home for comfort. Hospice consult was placed. Patient underwent modified barium swallow study showing gross aspiration into the lungs on all trials and recommending hospice as patient is not a candidate for tube feeds or TPN. Family agreeable to meet with hospice and [facility] consulted. Review of systems: Constitutional: reports of fatigue, no fever, or chills Cardiovascular: No reports of chest pain or palpitations Respiratory: No reports of shortness of breath or cough GI: reports of nausea, no reports of vomiting, : No reports of dysuria or retention Neurovascular: reports of generalized weakness All medications have been reviewed PHYSICAL EXAMINATION: GENERAL: The patient is a 72-year-old male who is lethargic although arousable, Slightly more awake today,alert and oriented x2, extremely ill-appearing, cachectic, elderly appearing, thin built, emaciated HEENT: Pupils are round and equally reacting to light. EOMI. no scleral icterus. No conjunctival pallor. Normocephalic, atraumatic. No pharyngeal erythema. No thyromegaly. CARDIOVASCULAR: S1 and S2 muffled PULMONARY: diminished breath sounds bilaterally with coarse rhonchi noted. ABDOMEN: soft. Thin, slightly less distended post paracentesis. Hypoactive bowel sounds. No palpable organomegaly. MUSCULOSKELETAL: No joint swelling or deformity. EXTREMITIES: No cyanosis, clubbing, or pedal edema. Extensive muscle wasting noted of upper and lower extremities NEUROLOGICAL: Gross neurological examination did not reveal any focal deficits. Diffuse weakness SKIN: No rashes. Significant muscle wasting noted throughout Assessment: Metabolic encephalopathy and hepatic encephalopathy secondary to acute renal failure as well as elevated ammonia level Hyperammonemia, trending down although unable to take any oral lactulose Aspiration as noted on modified barium swallow, continue n.p.o. Acute renal failure from dehydration, improving Hypernatremia secondary to poor oral intake and IV fluid, being transition to D5 and water Possible GI bleed with anemia, blood noted in the stool and hemoglobin is 6.9 today Anemia, likely chronic Elevated lactic acidosis with features of sepsis, present on admission Ascites secondary to liver cirrhosis, ongoing palliative paracentesis in the outpatient setting Liver cirrhosis related to hypotension Prostate cancer, with metastasis to the bone, was supposed to be on therapy with urology although has not been taking Diabetes melitis, type II Chronic liver disease History of decubitus ulcer on the left buttock, now healed History of esophageal varices GI prophylaxis DVT prophylaxis No code Plan: Patient with multiple medical consultations following including infectious d isease, urology, and interventional radiology. Patient is status post paracentesis of approximately 7 L removed yesterday. Patient received albumin and blood pressure somewhat stable although on the lower side Patient also has not eaten in over 5 days and having difficulties and underwent swallow eval including modified barium swallow study and failed miserably with speech reporting he was grossly aspirating on all consistencies and recommend hospice. Patient is not a candidate for TPN due to other comorbidities as well as PEG tube with significant ascites and cirrhosis Had a lengthy discussion with family regarding overall poor prognosis and treatment plan moving forward and family agreeable to have an informational hospice meeting Patient was evaluated by urology and was supposed to be taking immunotherapy although has not been taking Patient receiving palliative paracentesis every 2 weeks and is becoming more frequent. Patient with features of sepsis and DRAKE with hypotension, leukocytosis and lactic acidosis with concerns of possible spontaneous bacterial peritonitis as patient has chronic ascites. Patient is continued on antibiotics in the form of ceftriaxone and will continue. Hemoglobin noted to be 6.9 today and did have positive occult from the stool. Overall prognosis extremely poor and family did meet with [facility] and arrangements are being made to go home with hospice comfort measures and will require discharge needs including hospital bed which is being arranged for tomorrow. Patient will discharge home with hospice tomorrow 04/05/2023. The impression and plan of care has been dictated by Maira Rios, nurse practitioner as directed. Dr. Mitch MD I have performed a history and examination and MDM of this patient, discussed t he same with the dictator, and agree with the dictator's assessment and plan as written ,documented as a scribe. Based on total visit time, I have performed more than 50% of the visit. Any additional findings or plans will be noted. Objective - Vital Signs Vital signs: Vital Signs Temp 97.6 F 04/04/23 08:00 Pulse 85 04/04/23 08:00 Resp 22 04/04/23 08:00 BP 100/56 04/04/23 08:00 Pulse Ox 98 04/04/23 08:00 FiO2 Intake & Output 04/03/23 04/04/23 04/04/23 18:59 06:59 18:59 Output Total 1050 Balance -1050 Weight 70.851 kg Output: Urine 1050 Other: Voiding Method Indwelling Catheter Indwelling Catheter Indwelling Catheter # Bowel Movements 1 - Labs CBC & Chem 7: 04/04/23 09:53 04/04/23 09:53 Labs: Microbiology - Last 24 Hours (Table) 04/02/23 15:05 Blood Culture - Preliminary Blood
[2023-04-04 20:07] VITALS: RESP 18
--- NOTE | 2023-04-05 07:23 | P.DS ---
Providers Date of admission: 04/01/23 20:33 Expected date of discharge: 04/05/23 Attending physician: Yarely Meyre Consults: 04/01/23 20:32 Consult Physician Routine Consulting Provider: Ivan Baker Consult Reason/Comments: prostrate ca Do you want consulting provider notified?: Yes 04/02/23 13:41 Consult Physician Routine Consulting Provider: Delaney Calderón Consult Reason/Comments: sepsis Do you want consulting provider notified?: Yes Primary care physician: Eleazar Mays MD Hospital Course: Final diagnosis Metabolic encephalopathy and hepatic encephalopathy secondary to acute renal failure as well as elevated ammonia level Hyperammonemia, trending down although unable to take any oral lactulose Aspiration as noted on modified barium swallow, continue n.p.o. Acute renal failure from dehydration Hypernatremia secondary to poor oral intake and IV fluid Possible GI bleed with anemia, blood noted in the stool and hemoglobin is 6.9 today Anemia, likely chronic Elevated lactic acidosis with features of sepsis, present on admission Ascites secondary to liver cirrhosis, ongoing palliative paracentesis in the outpatient setting Liver cirrhosis related to hypotension Prostate cancer, with metastasis to the bone, was supposed to be on therapy with urology although has not been taking Diabetes melitis, type II Chronic liver disease History of decubitus ulcer on the left buttock, now healed History of esophageal varices GI prophylaxis DVT prophylaxis No code Discharge disposition Patient is being discharged in a stable condition with guarded prognosis to home with [facility] hospice services. Patient will follow-up with with [facility] hospice in the outpatient setting upon discharge. Patient is to follow-up with primary care provider Dr. Mays. Total time taken is greater than 35 minutes. Hospital course This is a 72-year-old male who was recently admitted with increased weakness fatigue, significant ascites and features of sepsis, present on admission. Multiple medical consultations including infectious disease following and maintained on antibiotics with concerns of possible infection. Patient with significant abdominal ascites status post paracentesis with approximately 7 L removed. Patient also having significant decline in swallowing underwent swallow study and modified barium swallow which showed gross aspiration on all consistencies and speech recommending hospice. Patient with significant comorbidities including metastatic prostate cancer to the bone and severe liver cirrhosis with ascites has overall extremely poor prognosis and is appropriate for hospice. Family met with [facility] and would like to take the patient home and arrangements are being made for discharge planning needs including equipment in the home.Please refer to other consultation notes for further HPI. Currently no reports of chest pain, shortness of breath, or palpitations. Patient is afebrile. No reports of nausea or vomiting and patient has not eaten in 5 days. Patient will be discharged home with [facility] hospice services. Physical exam: Gen: This is a 72-year-old male who is severely cachectic, ill-appearing, emaciated, thin built, elderly appearing HEENT: Head is atraumatic, normocephalic. Pupils equal, round. Sclerae is anicteric. NECK: Supple. No JVD. No lymphadenopathy. No thyromegaly. LUNGS: Diminished breath sounds bilaterally with scattered rhonchi. No intercostal retractions. HEART: S1, S2 are muffled ABDOMEN: Soft. Distended. Bowel sounds are present. No masses. No tenderness. EXTREMITIES: No pedal edema. No calf tenderness. Significant muscle wasting noted NEUROLOGICAL: Patient is awake, alert and oriented x2. Extremely lethargic, diffusely weak Please refer to medication reconciliation sheet for a list of medications. The impression and plan of care has been dictated by Maira Rios, Nurse Practitioner as directed. Dr. Mitch MD I have performed a history and examination and MDM of this patient, discussed the same with the dictator, and agree with the dictator's assessment and plan as written ,documented as a scribe. Based on total visit time, I have performed more than 50% of the visit. Plan - Discharge Summary Discharge Rx Participant: No New Discharge Prescriptions: Discontinued Mv-Min/Folic/K1/Lycopen/Lutein [Centrum Silver Men Tablet] 1 tab PO DAILY@1200 Spironolactone 25 mg PO DAILY Slow-Mag (Unknown Dose) 1 tab PO DAILY@1200 Ferrous Sulfate [Iron] 325 mg PO DAILY predniSONE 100 mg PO DAILY metFORMIN HCL 1,000 mg PO BID glipiZIDE [Glucotrol] 5 mg PO BID Loperamide [Imodium] 2 mg PO BID Calcium 600mg W/Vitamin D3 1 tab PO BID Furosemide [Lasix] 40 mg PO DAILY Tamsulosin [Flomax] 0.4 mg PO PC-SUPPER Pantoprazole [Protonix] 40 mg PO DAILY Midodrine HCl 5 mg PO BID Propranolol [Inderal] 10 mg PO TID No Action Megestrol Acetate 20 mg PO BID Discharge Medication List Megestrol Acetate 20 mg PO BID 04/01/23 [History] Follow up Appointment(s)/Referral(s): Nursing,Brian [NON-STAFF] - Eleazar Mays MD [Primary Care Provider] - 1-2 Days Activity/Diet/Wound Care/Special Instructions: Patient will be going home with [facility] services with focus on comfort measures Plan is for discharge via EMS to home on 04/05/2023 Discharge Disposition: HOME WITH HOSPICE
--- NOTE | 2023-04-05 08:05 | P.PN ---
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 He states that he is feeling somewhat better. CT scan shows evidence of osseous metastases, as well as massive ascites and cirrhosis. The patient underwent paracentesis on April 03, 2023. 7.1 L of fluid was drained. He states that he has not begun taking Erleada out of concern regarding itching. Objective - Vital Signs Vital signs: Vital Signs Temp 97.3 F L 04/04/23 04:00 Pulse 86 04/04/23 04:00 Resp 18 04/04/23 04:00 BP 87/50 04/04/23 04:00 Pulse Ox 98 04/03/23 20:21 FiO2 Intake & Output 04/03/23 04/03/23 04/04/23 06:59 18:59 06:59 Intake Total 0 Output Total 675 1050 Balance -675 -1050 Weight 70.851 kg Intake: Oral 0 Output: Urine 675 1050 Other: Voiding Method Indwelling Catheter Indwelling Catheter Indwelling Catheter # Bowel Movements 1 - Constitutional Constitutional Comment(s): Thin, cachetic, no apparent distress. - Gastrointestinal Gastrointestinal Comment(s): Soft, non-tender, somewhat less distended. - Psychiatric Psychiatric: Present: A&O x's 3 - Labs CBC & Chem 7: 04/04/23 09:53 04/04/23 09:53 Labs: Microbiology - Last 24 Hours (Table) 04/02/23 15:05 Blood Culture - Preliminary Blood Assessment and Plan (1) Malignant neoplasm of prostate Current Visit: Yes Status: Acute Code(s): C61 - MALIGNANT NEOPLASM OF PROSTATE SNOMED Code(s): 392050645 (2) Secondary malignant neoplasm of bone Current Visit: Yes Status: Acute Code(s): C79.51 - SECONDARY MALIGNANT NEOPLASM OF BONE SNOMED Code(s): 94843629 Plan: Mr. Knutson has metastatic castrate resistant prostate cancer in addition to cirrhosis with advanced liver disease. His overall prognosis is poor and he and his family have elected to proceed with Hospice care. Please notify me if I can be of any further assistance.
[2023-04-05 08:23] VITALS: BP 105/61; PULSE 95; TEMP 98
== END 2023-04-05 10:24 | disposition hospice, home (50) | DRG 871 ==
LOC: EC 19:07 → SUPCPDRO 19:07 → 5NMEDONC 20:33 → 3SCARD 23:02
PROVIDERS: ADMIT Hospitalist; ATTEND Hospitalist
PROC: 0W9G3ZZ Drainage of Peritoneal Cavity, Percutaneous Approach (ICD-10-PCS; principal; 2023-04-01)
DX: A41.9 Sepsis, unspecified organism (principal); G93.41 Metabolic encephalopathy; N17.9 Acute kidney failure, unspecified; E87.0 Hyperosmolality and hypernatremia; R18.8 Other ascites; C79.51 Secondary malignant neoplasm of bone; R64 Cachexia; K76.82 Hepatic encephalopathy; Z51.5 Encounter for palliative care; Z66 Do not resuscitate; R65.20 Severe sepsis without septic shock; E86.0 Dehydration; K74.60 Unspecified cirrhosis of liver; D64.9 Anemia, unspecified; Z96.642 Presence of left artificial hip joint; C61 Malignant neoplasm of prostate; M19.90 Unspecified osteoarthritis, unspecified site; E11.9 Type 2 diabetes mellitus without complications; Z79.4 Long term (current) use of insulin; Z79.84 Long term (current) use of oral hypoglycemic drugs; Z79.899 Other long term (current) drug therapy; Z68.25 Body mass index [BMI] 25.0-25.9, adult; Z92.3 Personal history of irradiation; Z88.1 Allergy status to other antibiotic agents; Z88.0 Allergy status to penicillin; Z88.2 Allergy status to sulfonamides; Z88.8 Allergy status to other drugs, medicaments and biological substances
CPT/HCPCS: 36415; 49083; 70450; 71046; 74176; 74230; 80048; 80053; 81003; 82140; 83605; 83735; 84484; 85025; 85610; 85730; 87040; 93005; 93306; 94760; 96361; 96374; 99285